=== PATIENT | female | born 1955 | race Caucasian/White ===

== ENCOUNTER 2019-07-26 12:44 | Outpatient (CLI) | payer OTHER, SELFPAY ==
--- NOTE | ~2019-07-26 | CT_ITS ---
EXAMINATION: CT shoulder LT wo con DATE: 07/26/2019 12:59 INDICATION: Left shoulder pain and chronic arthritis. TECHNIQUE: High resolution computed tomography (CT) of the left shoulder was performed without intrav enous contrast. Additional sagittal and coronal reconstructions were performed. Automated exposure co ntrol and iterative reconstruction technique were employed. The dose-length product was 354.74 mGy-cm . COMPARISON: None FINDINGS: Bone alignment is normal. No fracture. Advanced osteoarthritis at the left shoulder with remodeling o f the humeral head and glenoid. This results in loss of bone stock along the posterior glenoid with 1 8 degrees retroversion. Moderate size marginal osteophytes about the glenoid and large marginal osteo phytes along the posterior and inferior humeral head. Small glenohumeral joint effusion with a couple moderate-sized loose osteochondral bodies at the deep subscapular recess. Mild acromioclavicular ost eoarthritis. No evident asymmetric muscular atrophy at the left shoulder girdle. Mild atelectasis emilia ng the left major fissure. Calcified left hilar lymph nodes consistent with old granulomatous disease . No pathologically enlarged lymphadenopathy at the left axillary visualized mediastinum. IMPRESSION: 1. Advanced left glenohumeral osteoarthritis with remodeling of the glenoid resulting in 15 degrees r etroversion. Reviewed, dictated and finalized at location A. IMPRESSION: 1. Advanced left glenohumeral osteoarthritis with remodeling of the glenoid res ulting in 15 degrees retroversion.
== END 2019-07-26 12:45 | disposition home or self-care (01) ==
LOC: CHSIMG 12:45
PROVIDERS: PCP Internal Medicine; Visit Provider Internal Medicine
DX: M25.512 Pain in left shoulder (principal)
CPT/HCPCS: 73200

== ENCOUNTER 2019-10-25 15:00 | Outpatient (CLI) | payer OTHER, SELFPAY ==
--- NOTE | ~2019-10-25 | XR_ITS ---
EXAMINATION: XR chest 2V 10/25/2019 15:16 INDICATION: Hypertension. PROCEDURE: 2 view chest COMPARISON: 12/31/2018 FINDINGS: The lungs are clear. The cardiomediastinal silhouette is within normal limits. There are no pleural effusions. There is no pneumothorax suspected. There is a right shoulder arthroplasty. N o significant change to position of spinal stimulator leads. IMPRESSION: 1: NO ACUTE CARDIOPULMONARY DISEASE. Reviewed, dictated and finalized at location A.
== END 2019-10-25 15:01 | disposition home or self-care (01) ==
LOC: CHSLAB 15:02 → CHSIMG 15:02
PROVIDERS: PCP Internal Medicine; Visit Provider Internal Medicine
DX: I10 Essential (primary) hypertension (principal)
CPT/HCPCS: 71046

== ENCOUNTER 2019-11-22 08:46 | Outpatient (RCR) | payer OTHER, SELFPAY ==
--- NOTE | 2019-11-22 09:22 | PTOPEVAL ---
Thank you for referring Heidi Dalton to [facility]. Please review, sign, date and return this plan of care BLAINE. I agree with and certify that the following plan of care is medically necessary. Referring Physician Date Admitting Provider: Attending Provider: PHYSICIAN NOT ON STAFF Referring Provider: *PT Outpatient Evaluation Start: 11/22/19 09:00 Freq: Status: Active Protocol: Document 11/22/19 09:00 CARIDAD (Rec: 11/22/19 09:19 CARIDAD [id number]) Therapy Assessment Status Assessment Status Assessment Status Evaluation Outpatient Past Medical History Neurological History Hx Neurological Disorders No Significant History Cardiovascular History Hx Hypertension Yes Respiratory History Hx Respiratory Disorders No Significant History Gastrointestinal History Hx Appendectomy Yes Hx Diverticulitis Yes Hx Gall Bladder Disease Yes Hx Gastric Bypass Surgery Yes: GASTRIC SLEEVE Hx Polyps Yes Hx Other Gastrointestinal Disorders Yes: WT LOSS 50 LBS 1 YR Genitourinary History Hx Genitourinary Disorders No Significant History Musculoskeletal History Hx Arthritis Yes Hx Back Pain Yes: RODS AND SCREWS Hx Joint Replacement Yes: RT SHOULDER, RT KNEE Hx Orthopedic Surgery Yes: RT KNEE, RT CARPAL TUNNEL Hx Spinal Surgery Yes: RODS AND SCREWS Hx Other Musculoskeletal Disorders Yes: BACK STIMULATOR Hematological History Hx Hematological Disorders No Significant History Endocrine History Hx Endocrine Disorders No Significant History HEENT History Hx Tonsillectomy Yes Integumentary History Hx Shingles Yes Reproductive History Hx Reproductive Disorders No Significant History Psychosocial History Hx Psychiatric Disorders No Significant History Pain History Has Past Pain Affected Your Daily Life Yes History of Long-Term Prescription Pain Yes: [id number] Medication Use (Opiates) Effective Methods of Pain Control STIMULATOR Anesthesia History Hx Anesthesia Reactions No Significant History Other History Hx Implanted Device Yes: RT KNEE, RT SHOULDER, JOHANA & SCREWS BACK, STIMULATOR BACK Evaluation Information Problem Diagnosis s/p reverse total shoulder arthroplasty left Onset 11/02/19 Subjective Information Pt. reports she underwent RSTA Query Text:As Reported By Patient/ 3 weeks ago. She reports her Family pain has been minimal. She reports that she is currently restricted to nothing over 1
--- NOTE | 2020-01-17 07:25 | PTOPEVAL ---
Thank you for referring Heidi Dalton to [facility].? The patient is scheduled to be seen for therapy? ____x/week for ___ weeks. Please review, sign, date and return this plan of care BLAINE. I agree with and certify that the following plan of care is medically necessary. Referring Physician Date Admitting Provider: Attending Provider: PHYSICIAN NOT ON STAFF Referring Provider: *PT Outpatient Evaluation Start: 11/22/19 09:00 Freq: Status: Active Protocol: Document 01/06/20 11:00 CARIDAD (Rec: 01/17/20 07:24 CARIDAD [id number]) Therapy Assessment Status Assessment Status Assessment Status Progress Outpatient Past Medical History Neurological History Hx Neurological Disorders No Significant History Cardiovascular History Hx Hypertension Yes Respiratory History Hx Respiratory Disorders No Significant History Gastrointestinal History Hx Appendectomy Yes Hx Diverticulitis Yes Hx Gall Bladder Disease Yes Hx Gastric Bypass Surgery Yes: GASTRIC SLEEVE Hx Polyps Yes Hx Other Gastrointestinal Disorders Yes: WT LOSS 50 LBS 1 YR Genitourinary History Hx Genitourinary Disorders No Significant History Musculoskeletal History Hx Arthritis Yes Hx Back Pain Yes: RODS AND SCREWS Hx Joint Replacement Yes: RT SHOULDER, RT KNEE Hx Orthopedic Surgery Yes: RT KNEE, RT CARPAL TUNNEL Hx Spinal Surgery Yes: RODS AND SCREWS Hx Other Musculoskeletal Disorders Yes: BACK STIMULATOR Hematological History Hx Hematological Disorders No Significant History Endocrine History Hx Endocrine Disorders No Significant History HEENT History Hx Tonsillectomy Yes Integumentary History Hx Shingles Yes Reproductive History Hx Reproductive Disorders No Significant History Psychosocial History Hx Psychiatric Disorders No Significant History Pain History Has Past Pain Affected Your Daily Life Yes History of Long-Term Prescription Pain Yes: [id number] Medication Use (Opiates) Effective Methods of Pain Control STIMULATOR Anesthesia History Hx Anesthesia Reactions No Significant History Other History Hx Implanted Device Yes: RT KNEE, RT SHOULDER, JOHANA & SCREWS BACK, STIMULATOR BACK Evaluation Information Problem Subjective Information Pt. reports having no pain. Query Text:As Reported By Patient/ She states that she still Family notes weakness in the left shoulder, but has not been doing any strenuous lifting. She reports that she returns to her doctor in a few weeks.
== END 2020-02-11 13:15 | disposition home or self-care (01) ==
LOC: CHSPT 08:46
PROVIDERS: PCP Internal Medicine
DX: Z96.612 Presence of left artificial shoulder joint (principal)
CPT/HCPCS: 97110; 97161

== ENCOUNTER 2020-04-11 09:10 | Outpatient (CLI) | payer OTHER, SELFPAY ==
--- NOTE | ~2020-04-11 | XR_ITS ---
XR_[id number]_CR 04/11/2020 09:41 Indication: Neck pain Procedure: 3 views of the cervical spine Comparison: No prior studies for comparison. Findings: There are mild degenerative changes at C5-6 and C6-7. There is mild multilevel uncinate hyp ertrophy. Odontoid process within normal limits. Lung apices are normal. No prevertebral soft tissue abnormality. No fracture or traumatic malalignment. Impression: 1: Mild cervical spondylosis. Reviewed, dictated and finalized at location A. 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
--- NOTE | ~2020-04-11 | XR_ITS ---
EXAMINATION: XR thoracic spine 3V DATE: 04/11/2020 09:42 INDICATION: Dorsalgia with bilateral arm numbness and right leg weakness. TECHNIQUE: One AP, lateral and lateral swimmer's views of the thoracic spine were obtained. COMPARISON: Chest CT dated 12/15/2018 FINDINGS: Alignment is normal. Chronic T3 compression fracture with mild anterior vertebral body height loss wh ich is partially obscured on the lateral projection by a partially visualized right total shoulder ar throplasty. Also partially seen is a left reversed total shoulder arthroplasty. Remaining vertebral b haley heights are normal. There is multilevel mild disc height loss with degenerative endplate osteophy pawel at multiple levels throughout the thoracic spine. There are a pair of spinal stimulator leads pro ject over the central canal with proximal tips at the levels of the superior and inferior endplates o f T7. Cholecystectomy clips in right upper quadrant. Suture lines in the epigastric region. Partially visualized cephalad tips of bilateral vertebral rods for nonvisualized lumbar posterior spinal fusio n. Visual is portions of the lungs are clear. No pleural effusion. IMPRESSION: 1. Chronic mild T3 compression fracture. No evident acute osseous abnormality. 2. Mild thoracic spondylosis. Reviewed, dictated and finalized at location B. ENFORCEMENT AGENT
--- NOTE | ~2020-04-11 | XR_ITS ---
EXAMINATION: XR lumbar spine 2-3V DATE: 04/11/2020 09:42 INDICATION: Dorsalgia. TECHNIQUE: 3 views of lumbar spine were obtained. COMPARISON: Lumbar spine radiographs 04/08/2017, CT abdomen and pelvis 02/26/2019 FINDINGS: There is 7 mm retrolisthesis of L2 on L3. Vertebral body heights are normal. There is sever doroteo decreased disc height at L2-L3. There are changes of anterior fusion procedures from L3-L4 to L5- S1 with interbody device at L3-L4. There are changes of posterior fusion procedure from L3 to S1 with pedicle screws. There are surgical clips in the abdomen. There is a staple line in left upper quadra nt. There are epidural electrodes in thoracic spine. IMPRESSION: 1. Severe degenerative disc disease at L2-L3. 2. Anterior and posterior fusion procedures from L3 to S1. Reviewed, dictated and finalized at location A. TICS LOADER
== END 2020-04-11 09:11 | disposition home or self-care (01) ==
LOC: CHSIMG 09:12
PROVIDERS: PCP Internal Medicine; Visit Provider Internal Medicine
DX: M54.9 Dorsalgia, unspecified (principal); M54.2 Cervicalgia
CPT/HCPCS: 72040; 72072; 72100

== ENCOUNTER 2020-04-12 09:30 | Outpatient (CLI) | payer OTHER, SELFPAY | END 2020-04-12 09:31 | disposition home or self-care (01) | PROVIDERS: PCP Internal Medicine; Visit Provider Internal Medicine | DX: Z53.8 Procedure and treatment not carried out for other reasons (principal) | CPT/HCPCS: 99199 ==

== ENCOUNTER 2020-04-15 07:22 | Outpatient (CLI) | payer OTHER, SELFPAY ==
--- NOTE | ~2020-04-15 | MR_ITS ---
EXAMINATION: MR lumbar spine wo con EXAM DATE: 04/15/2020 09:14 INDICATION: Low back pain. Fusion. TECHNIQUE: Multi-sequential, multiplanar MR images of the lumbar spine were obtained without contrast . Sagittal T1, T2, T2 fat saturation images. Axial T2 weighted images. Correlation is made to lumba r x-ray 04/11/2020. FINDINGS: Posterior fusion L3-S1 with laminectomies. There is moderate disc disease at L2-3 interbody device at L3-4. Solid bone bridging at L4-5 and L5-S1. There is 3 mm retrolisthesis L2 on L3. Diffus doroteo heterogeneous bone marrow signal without suspicious focal abnormality. Level by level evaluation: Axial T2-weighted images in particular significantly limited due to the m etallic artifact, also scanning parameters required for patient's neurostimulator. Assessment below i s based mainly on sagittal T2-weighted sequence. T12-L1: Disc does not extend beyond the endplate margin. Facet arthropathy: None. Neural foraminal stenosis: No stenosis. Central canal stenosis: No stenosis. L1-L2: There is a minimal diffuse disc bulge. Facet arthropathy: Mild. Neural foraminal stenosis: No stenosis. Central canal stenosis: Mild. L2-L3: There is a moderate diffuse disc bulge. Facet arthropathy: Probably moderate. Neural foraminal stenosis: Moderate to severe bilateral. Central canal stenosis: Moderate to severe. L3-L4: This level is fused. Facet arthropathy: Poorly visualized. Neural foraminal stenosis: No stenosis. Central canal stenosis: No stenosis. L4-L5: This level is fused. Facet arthropathy: Poorly visualized. Neural foraminal stenosis: No stenosis. Central canal stenosis: No stenosis. L5-S1: This level is fused. Facet arthropathy: Poorly visualized. Neural foraminal stenosis: No stenosis. Central canal stenosis: No stenosis. IMPRESSION: 1. L2-3 moderate disc disease, grade 1 retrolisthesis, moderate to severe central canal and neural f oraminal stenosis. 2. Lumbar fusion, laminectomies L3-S1. Reviewed, dictated and finalized at location A. H REPAIR TECHNICIAN IMPRESSION: 1. L2-3 moderate disc disease, grade 1 retrolisthesis, moderate to severe cent ral canal and neural foraminal stenosis. 2. Lumbar fusion, laminectomies L3-S1.
== END 2020-04-15 07:23 | disposition home or self-care (01) ==
LOC: CHSIMG 07:23
PROVIDERS: PCP Internal Medicine; Visit Provider Internal Medicine
DX: M54.5 Low back pain (principal)
CPT/HCPCS: 72148

== ENCOUNTER 2020-06-28 07:27 | Outpatient (CLI) | payer OTHER, SELFPAY ==
--- NOTE | ~2020-06-28 | US_ITS ---
EXAMINATION: US abdomen complete EXAM DATE: 06/28/2020 08:20 INDICATION: Abdominal pain. TECHNIQUE: Multiple grayscale and Doppler images of the complete abdomen were obtained (by a technolo gist who performed the scan) and subsequently reviewed. Correlation is made to kidney ultrasound 2018, CT scan abdomen pelvis 02/26/2019. FINDINGS: The abdominal aorta is normal in caliber. Visualized portion IVC is patent. The pancreatic head a nd body are normal in appearance. The pancreatic tail is not visualized. The liver has normal echogenicity and contour. There are no focal liver lesions identified. There is no evidence of intrahepatic biliary duct dilation. Portal venous flow was seen in the hepatopedal , normal direction and has normal Doppler waveform. Common bile duct measures 4 mm, which is normal. The gallbladder fossa is unremarkable. Right kidney: There is normal contour and echogenicity. It measures 10.0 x 3.8 x 6.0 centimeters. There are no focal renal lesions identified. There is no hydronephrosis. Left kidney: There is normal contour and echogenicity. It measures 9.5 x 4.4 x 4.4 centimeters. Th ere are no focal renal lesions identified. There is no hydronephrosis. The spleen measures 8.3 centimeters and is morphologically normal. IMPRESSION: 1. Unremarkable complete abdominal ultrasound exam. Reviewed, dictated and finalized at location A. OS ARCHITECT
== END 2020-06-28 07:28 | disposition home or self-care (01) ==
LOC: CHSIMG 07:28
PROVIDERS: PCP Nurse Practitioner Family; Visit Provider Nurse Practitioner Family
DX: R10.9 Unspecified abdominal pain (principal)
CPT/HCPCS: 76700

== ENCOUNTER 2020-07-06 09:43 | Outpatient (CLI) | payer OTHER, SELFPAY ==
--- NOTE | ~2020-07-06 | CT_ITS ---
EXAMINATION: CT lumbar spine wo con DATE: 07/06/2020 10:33 INDICATION: Chronic low back pain. Spinal stenosis. TECHNIQUE: Computed tomography (CT) of the lumbar spine was performed without intravenous contrast. A utomated exposure control and iterative reconstruction technique were employed. The dose-length produ ct was 795.43 mGy-cm. COMPARISON: Lumbar spine MRI 04/15/2020 FINDINGS: There are surgical changes of the stomach. Partially visualized are epidural electrodes. Bob ne alignment is normal. There are changes of anterior and posterior fusion procedures from L3 to S1 w ith pedicle screws and interbody bone graft. There is mild chronic height loss of T11 and T12 vertebr al bodies. There is severely decreased disc height at L2-L3. There are laminectomies from L3 to L5. T he following disc levels are specifically discussed: L1-L2: The disc does not extend beyond the endplate margin. There is moderate bilateral facet joint o steoarthritis. There is no neural foraminal stenosis. There is no central canal stenosis. L2-L3: The disc is bulging. There is mild right and moderate left facet joint osteoarthritis. There i s moderate bilateral neural foraminal stenosis. There is mild central canal stenosis. L3-L4: There is no facet joint hypertrophy. There is no neural foraminal stenosis. There is no centra l canal stenosis. L4-L5: There is no facet joint hypertrophy. There is no neural foraminal stenosis. There is no centra l canal stenosis. L5-S1: There is mild bilateral facet joint hypertrophy. There is mild bilateral neural foraminal sten osis. There is no central canal stenosis. IMPRESSION: 1. Severe spondylosis at L2-L3. 2. Anterior and posterior fusion procedures from L3 to S1. Reviewed, dictated and finalized at location A. ARCHITECTURE CONSULTANT
--- NOTE | ~2020-07-06 | DEXA_ITS ---
Bone Density Report Name: Heidi Dalton Age: 64 Sex: Female Ethnicity: White Date of : 1955 Indication: postmenopausal; screening for osteoporosis; prior fracture; Referring Provider: Roly, Casey Marinelli Study: Bone densitometry was performed. Exam Date: July 06, 2020 Accession number: [id number] Bone Density: Region BMD T-score Z-score Classification Femoral Neck (Left) 0.671 -1.6 -0.1 Osteopenia Total Hip (Left) 0.697 -2.0 -0.8 Osteopenia Femoral Neck (Right) 0.659 -1.7 -0.2 Osteopenia Total Hip (Right) 0.705 -1.9 -0.7 Osteopenia Femoral Neck Mean 0.665 -1.7 -0.2 Osteopenia Total Hip Mean 0.701 -2.0 -0.8 Osteopenia World Health Organization criteria for BMD impression classify patients as: Normal (T-score at or above -1.0), Osteopenia (T-score between -1.0 and -2.5), or Osteoporosis (T-score at or below -2.5). 10-year Fracture Risk: FRAX not reported because: Prior hip or vertebral fracture Clinical Information Provided by Patient: Have had a previous hip or vertebral fracture Has had a low trauma fracture Patient maximum height was 63 Menopause Age: 52 No regular weight bearing exercise Drinks caffeinated beverages Onset of menses at age 14 Number of children 2 Missed period for more than 6 months in a row Impression: The patient has low bone mass, based on the Left Total Hip T-score. The patient has risk factors, including: previous fracture. Discussion: INCREASED RISK OF FRACTURE DUE TO HISTORY OF FRACTURE. The patient's previous fracture puts the patient at high risk of a future fracture. In untreated patients, the risk of osteoporotic fracture increases approximately two-fold for each 1.0 SD decrease in T-score. Low bone density is not the only risk factor for fracture; also consider factors such as patient's age, frailty or poor health, risk of falling, risk of injury, previous osteoporotic fracture, family history of osteoporosis, cigarette smoking, low body weight, etc. Not everyone with a low trauma fracture has osteoporosis; osteomalacia and other metabolic bone disorders should also be considered. Patients who have osteoporosis should be evaluated for specific diseases and conditions (secondary causes) that may cause or contribute to bone loss and fracture risk. National Osteoporosis Foundation (NOF) recommends pharmacologic intervention for patients with a prior hip or vertebral fracture regardless of BMD T-score. The patient should follow a healthful lifestyle (good nutrition with adequate calcium and vitamin D, and appropriate weight-bearing exercise). Follow-Up: Consider a repeat BMD and Vertebral Fracture Assessment (VFA) exam in 2 years or sooner if medically necessary, to reassess this patient's status. Reported by: Dr. Hema Hagen on 07/06/2020 10:26:00 AM.
== END 2020-07-06 09:44 | disposition home or self-care (01) ==
LOC: CHSIMG 09:47
PROVIDERS: PCP Nurse Practitioner Family; Visit Provider Neurological Surgery
DX: M48.061 Spinal stenosis, lumbar region without neurogenic claudication (principal); Z78.0 Asymptomatic menopausal state
CPT/HCPCS: 72131; 77080

== ENCOUNTER 2020-09-19 10:41 | Outpatient (CLI) | payer OTHER, SELFPAY ==
--- NOTE | ~2020-09-19 | MM_ITS ---
EXAMINATION: MM screening kain BI w jackie HISTORY: Screening mammogram TECHNIQUE: Craniocaudal and mediolateral oblique 3-D tomosynthesis images were obtained and synthetic 2-D images were generated. CAD analysis was submitted and interpreted. COMPARISON: No prior mammogram is available for comparison at this institution. BREAST PARENCHYMAL COMPOSITION: The breasts are almost entirely fatty. FINDINGS: There is no evidence of suspicious mass, calcification, or architectural distortion to sugg est malignancy in either breast. There has been no suspicious interval change. IMPRESSION: 1. No mammographic evidence of malignancy. 2. Recommend routine screening mammography in one year. BI-RADS Category 1: Negative Reviewed, dictated and finalized at location A.
== END 2020-09-19 10:42 | disposition home or self-care (01) ==
PROVIDERS: PCP Internal Medicine; Visit Provider Nurse Practitioner Family
DX: Z12.31 Encounter for screening mammogram for malignant neoplasm of breast (principal)
CPT/HCPCS: 77063; 77067

== ENCOUNTER 2021-01-24 10:00 | Outpatient (RCR) | payer MEDICARE, OTHER, SELFPAY | END 2021-01-24 23:59 | disposition home or self-care (01) | LOC: CHSSENLIFE 10:00 | PROVIDERS: PCP Internal Medicine; Visit Provider Psychiatry & Neurology Psychiatry | DX: F41.9 Anxiety disorder, unspecified (principal); F33.2 Major depressive disorder, recurrent severe without psychotic features | CPT/HCPCS: 90792; 90834; 90837; 90853; 99213; G0463 ==

== ENCOUNTER 2021-03-15 11:30 | Outpatient (RCR) | payer MEDICARE, OTHER, SELFPAY | END 2021-04-12 14:40 | disposition home or self-care (01) | LOC: CHSSENLIFE 11:30 | PROVIDERS: PCP Internal Medicine; Visit Provider Psychiatry & Neurology Psychiatry | DX: F41.9 Anxiety disorder, unspecified (principal); F33.2 Major depressive disorder, recurrent severe without psychotic features | CPT/HCPCS: 90837; 90853; 99213; G0463 ==

== ENCOUNTER 2021-10-11 01:21 | Day surgery (SDC) | payer MEDICARE, OTHER, SELFPAY ==
[2021-10-01 12:14] VITALS: BMI 30.4
--- NOTE | 2021-10-10 15:45 | WPDANESEPPF ---
Anes - Initial Pre Proc Eval Procedure: Operation Date: 10/11/21 07:30 Proposed Procedures p Esophagogastroduodenoscopy & Colonoscopy - Williams Miranda DO Date/Time: 10/10/21 15:45 Surgeon: Williams Miranda DO Pre Op Diagnosis: AMISH Patient Data Age: 65 Gender: F Height: 1.6 m Weight: 78 kg Allergies Allergy/AdvReac Type Severity Reaction Status Date / Time No Known Allergies Allergy Verified 10/11/21 06:18 Home Medications Medication Instructions Recorded Confirmed Type melatonin 10 mg tablet 10 mg PO HS PRN Sleep 03/04/19 10/11/21 History tizanidine 4 mg tablet 8 mg PO HS 03/04/19 10/11/21 History trazodone 150 mg tablet 200 mg PO HS 03/04/19 10/11/21 History zolpidem 10 mg tablet 10 mg PO HS PRN Sleep 03/04/19 10/11/21 History Patient hx anesthesia problems: none Family hx anesthesia problems: none Results Review: All pre-operative results and documents have been reviewed as part of the pre-operative evaluation. [facility] Past Medical History Medical History (Updated 10/10/21 @ 15:46 by Abdiaziz Singh DO) Anxiety Arthritis Chronic back pain Hyperlipidemia Hypertension Surgical History Surgical History (Updated 10/10/21 @ 15:46 by Abdiaziz Singh DO) History of gastric restrictive surgery (~08/2013) Family History Family History (Updated 03/01/16 @ 15:35 by DOCTOR UNKNOWN) Other Diabetes mellitus Family history of arthritis Family history of cardiovascular disease Family history of gout Hypertension Social History Social History Smoking status: Former smoker Tobacco type: cigarettes Alcohol intake: current Substance use: current Substance use type: marijuana Other substance usage details: Daily Living arrangements: with family Spiritual care concerns: No Anes - Eval Final PreProcedure Day of Procedure 10/10/21 15:45 Patient weight: obese Heart: regular rate and rhythm Lungs: clear to auscultation Airway: Mallampati scale class II Neurological: alert and oriented Last oral intake: >/= 8 hours ASA classification: III Emergent: no Anesthetic plan: proceed Anesthesia type and monitoring: general GIVS and standard monitoring Results Review: All pre-operative results and documents have been reviewed as part of the pre-operative evaluation. Informed Consent: The patient's anesthetic plan and its attendant risks and benefits were discussed with the patient/family/POA. Questions were solicited and answers provided to the satisfaction of the patient/family/POA.
[2021-10-11 06:10] VITALS: BP 124/85; PULSE 113; RESP 18; TEMP 36.4; O2SAT 97; BMI 30.3
[2021-10-11] MEDS: LACTATED RINGERS 1,000 ML 150 ML IV CONT (06:38)
--- NOTE | 2021-10-11 07:35 | PM.IMHP ---
H&P: HPI History of Present Illness Date/Time: 10/11/21 07:35 Chief Complaint: Anemia Narrative: this is a 65-year-old woman who presents for EGD and colonoscopy. She has been experiencing anemia but has an unknown source. She denies any hematochezia or melena. She does have a history of sleeve gastrectomy for weight loss. She last had a colonoscopy about 2-3 years ago and this was normal. Denies family history of colon cancer. Review of Systems Review of Systems: All systems reviewed & are unremarkable except as noted in HPI and below Constitutional: Constitutional: Denies chills, Denies fever(s), Denies headache(s) and Denies weight loss Eyes: Eyes: Denies change in vision ENT: Denies dizziness, Denies headache(s), Denies neck mass and Denies throat swelling Cardiovascular: Cardiovascular: Denies chest pain, Denies lightheadedness and Denies dyspnea Respiratory: Respiratory: Denies cough, Denies dyspnea and Denies wheezing Gastrointestinal: Gastrointestinal: Denies abdominal pain, Denies change in bowel habits, Denies nausea and Denies vomiting Genitourinary: Genitourinary: Denies hematuria and Denies dysuria Musculoskeletal: Musculoskeletal: Reports as per HPI Integumentary/Breasts: Skin/Breast: Reports as per HPI Neurologic: Denies dizziness and Denies headache(s) Allergic/Immunologic: Allergic/Immunologic: Denies throat swelling and Denies wheezing [facility] Past Medical History Medical History (Updated 10/11/21 @ 07:37 by Williams Miranda DO) Anxiety Arthritis Chronic back pain Hyperlipidemia Hypertension Surgical History Surgical History (Updated 10/10/21 @ 15:46 by Abdiaziz Singh DO) History of gastric restrictive surgery (~08/2013) Family History Family History (Updated 03/01/16 @ 15:35 by DOCTOR UNKNOWN) Other Diabetes mellitus Family history of arthritis Family history of cardiovascular disease Family history of gout Hypertension Social History Social History Smoking status: Former smoker Tobacco type: cigarettes Alcohol intake: current Substance use: current Substance use type: marijuana Other substance usage details: Daily Living arrangements: with family Spiritual care concerns: No Meds Home Medications and Allergies Home Medications Medication Instructions Recorded Confirmed Type melatonin 10 mg tablet 10 mg PO HS PRN Sleep 03/04/19 10/11/21 History tizanidine 4 mg tablet 8 mg PO HS 03/04/19 10/11/21 History trazodone 150 mg tablet 200 mg PO HS 03/04/19 10/11/21 History zolpidem 10 mg tablet 10 mg PO HS PRN Sleep 03/04/19 10/11/21 History Allergies Allergy/AdvReac Type Severity Reaction Status Date / Time No Known Allergies Allergy Verified 10/11/21 06:18 Vital Signs Vital Signs - 24 hr 10/11/21 06:10 Temperature 36.4 C Pulse Rate 113 H Respiratory Rate 18 Blood Pressure 124/85 Pulse Oximetry 97 Oxygen Delivery Room Air Exam Const: General: no acute distress and alert Orientation/consciousness: patient oriented x3 HENMT: Head: normocephalic and atraumatic Ears: hearing grossly normal bilaterally General nose exam: Normal nares present Mouth: Yes Normal oral and palatal mucosa present Eyes: Periorbital: periorbital findings normal Sclera: sclerae normal EOM: EOMs intact bilaterally Neck: Neck: normal visual inspection, no lymphadenopathy and trachea midline Chest: Chest palpation & inspection: normal inspection of the chest Resp: Effort & Inspection: normal respiratory effort Auscultation: clear to auscultation bilaterally Cardio: Jugular venous distension: no JVD Rate: regular rate Rhythm: regular rhythm Heart sounds: S1 normal heart sound present and S2 normal heart sound present Peripheral pulses: Peripheral pulses 2+ throughout GI: Inspection: normal to inspection GI Palp: Yes Soft to palpation, No Tenderness to palpation present (GI), No Guarding due to palpation present (GI) and
[2021-10-11 08:20] VITALS: BP 94/57; PULSE 66; RESP 15; O2SAT 100
--- NOTE | 2021-10-11 08:20 | SUR.OPER ---
EGD START 742, END 48 COLONOSCOPY START 075, END 08
[2021-10-11 08:30] VITALS: BP 104/69; PULSE 74; RESP 15; O2SAT 100
[2021-10-11 08:40] VITALS: BP 110/68; PULSE 71; RESP 18; O2SAT 100
== END 2021-10-11 08:51 | disposition home or self-care (01) ==
PROVIDERS: PCP Internal Medicine; Visit Provider Surgery
PROC: 0DJ08ZZ Inspection of Upper Intestinal Tract, Via Natural or Artificial Opening Endoscopic (ICD-10-PCS; CPT 43235; principal; 2021-10-11 07:30)
DX: D50.9 Iron deficiency anemia, unspecified (principal); D12.3 Benign neoplasm of transverse colon; K57.30 Diverticulosis of large intestine without perforation or abscess without bleeding; I10 Essential (primary) hypertension; E78.5 Hyperlipidemia, unspecified; F41.9 Anxiety disorder, unspecified; Z98.84 Bariatric surgery status; Z87.891 Personal history of nicotine dependence; F12.90 Cannabis use, unspecified, uncomplicated; E66.9 Obesity, unspecified; Z68.30 Body mass index [BMI] 30.0-30.9, adult
CPT/HCPCS: 45385; 43239; 88305; J2704; J7120

== ENCOUNTER 2022-05-14 12:33 | Outpatient (CLI) | payer MEDICARE, OTHER, SELFPAY ==
--- NOTE | 2022-05-14 12:50 | ECG_ITS ---
Measurements Intervals [place] Rate: 69 P: 62 IN: 153 QRS: 56 QRSD: 88 T: 55 QT: 426 QTc: 458 Interpretive Statements SINUS RHYTHM VENTRICULAR PREMATURE COMPLEX LOW QRS VOLTAGE IN PRECORDIAL LEADS BORDERLINE ECG NO PREVIOUS ECG AVAILABLE FOR COMPARISON Electronically Signed On 05-14-2022 13:06:44 PROCEDURE TECH by Francisco Deal D.O.
== END 2022-05-14 12:34 | disposition home or self-care (01) ==
LOC: CHSCARD 12:36
PROVIDERS: PCP Internal Medicine; Visit Provider Internal Medicine
DX: R00.2 Palpitations (principal)
CPT/HCPCS: 93005

== ENCOUNTER 2022-05-20 14:05 | Outpatient (CLI) | payer MEDICARE, OTHER, SELFPAY ==
--- NOTE | 2022-06-20 11:25 | WPDHOLTEREM ---
Holter/Event Monitor Holter/Event Monitor Date of procedure: 05/20/22 Holter/Event Procedure: Event Monitor Indications: Palpitations Conclusion: 1. 26 days event monitor between 05/20/22-06/18/22. There are 86 available transmissions for analysis. 2. Predominant rhythm is sinus rhythm. HR range 45-191 bpm; average HR 70 bpm. 3. There are occasional premature supraventricular complexes with total burden of 1%. There is 1 episode of supraventricular tachycardia at 191 bpm lasting 11 beats on 06/16/22 at 11:41. 4. There are occasional premature ventricular complexes with total burden of 1%. There is 1 episode of ventricular tachycardia t 129 bpm lasting 5 beats on 06/03/22 at 15:33. 5. No significant pauses greater than 2 seconds. 6. Patient reports 67 episodes of symptoms of skipped beat, heart racing, shortness of breath, lightheadedness, dizziness, symptom other than listed which demonstrate sinus rhythm, HR range 69-142 bpm with 23 episodes with PaC's and 14 episodes with PVC's.
== END 2022-05-20 14:06 | disposition home or self-care (01) ==
LOC: CHSCARD 14:07
PROVIDERS: PCP Internal Medicine; Visit Provider Internal Medicine
DX: R00.2 Palpitations (principal)
CPT/HCPCS: 93270

== ENCOUNTER 2022-07-09 09:50 | Outpatient (CLI) | payer MEDICARE, OTHER, SELFPAY ==
--- NOTE | ~2022-07-09 | XR_ITS ---
Right Knee Technique: AP, lateral, and sunrise views were obtained. Clinical History: Pain COMPARISON: 11/22/2021 Findings: No fracture or dislocation is seen. Right knee arthroplasty is unchanged. Soft tissues are unremarkable. No joint effusion is seen. Impression: No acute abnormality. Right knee arthroplasty is unchanged. Reviewed, dictated and finalized at location . Impression: No acute abnormality. Right knee arthroplasty is unchanged.
== END 2022-07-09 09:51 | disposition home or self-care (01) ==
LOC: CHSIMG 09:53
PROVIDERS: PCP Internal Medicine; Visit Provider Orthopaedic Surgery
DX: M25.561 Pain in right knee (principal); Z96.651 Presence of right artificial knee joint
CPT/HCPCS: 73562

== ENCOUNTER 2022-07-15 11:42 | Outpatient (CLI) | payer MEDICARE, OTHER, SELFPAY ==
--- NOTE | 2022-07-15 01:00 | ECHO_ITS ---
Patient Info Name: Heidi Dalton Age: 66 years : 1955 Gender: Female Ht: 62 in Wt: 182 lbs BSA: 1.94 m2 HR: 66 bpm BP: 135 / 85 mmHg Heart Rhythm: Sinus Rhythm Technical Quality: Fair Exam Date: 07/15/2022 11:53 AM Exam Location: [facility] Patient Status: Outpatient Admit Date: 07/15/2022 Staff Ordering Physician: Pietro Kelly MD [employer]: Mora Rosario RDCS Attending Provider: Pietro Kelly MD Referring Physician: Robin LOYD; Exam Type: CA echo doppler color flow Study Info Indications I47.2 - Ventricular tachycardia Complete two-dimensional, color flow and Doppler transthoracic echocardiogram is performed. Summary 1. Complete two-dimensional, color flow and Doppler transthoracic echocardiogram is performed. 2. Left ventricular chamber dimension is normal. 3. Left ventricular systolic function is normal, estimated at 60-65%. 4. The left ventricular diastolic function is grade I diastolic dysfunction. 5. E/e' 12 is mildly elevated. 6. There is mild aortic valve sclerosis. 7. There is mild aortic valve regurgitation. 8. There is trace mitral valve regurgitation. 9. There is trace tricuspid valve regurgitation. 10. No pulmonary hypertension, estimated pulmonary arterial systolic pressure is 29 mmHg. 11. There is trace pulmonic regurgitation. Left Ventricle E/e' 12 is mildly elevated. Left ventricular chamber dimension is normal. Left ventricular systolic function is normal, estimated at 60-65%. The left ventricular diastolic function is grade I diastolic dysfunction. Right Ventricle Right ventricular systolic function is normal and with normal TAPSE 1.9 cm. Right ventricular chamber dimension is normal. Left Atria Left atrial chamber dimension is normal. Right Atria Right atrial chamber dimension is normal. Aortic Valve The aortic valve is trileaflet. There is mild aortic valve sclerosis. There is no aortic valve stenosis. There is mild aortic valve regurgitation. Pulmonic Valve There is trace pulmonic regurgitation. Mitral Valve There is no mitral valve stenosis. There is trace mitral valve regurgitation. Tricuspid Valve There is trace tricuspid valve regurgitation. No pulmonary hypertension, estimated pulmonary arterial systolic pressure is 29 mmHg. Pericardium/Pleural There is no pericardial effusion. Inferior Vena Cava Normal inferior vena cava with >50% collapse upon inspiration consistent with normal right atrial pressure, 5 mmHg. Aorta The aortic root size at the sinus of Valsalva is normal. Left Ventricular Outflow Tract Name Value Normal LVOT 2D LVOT Diameter 2.0 cm LVOT Doppler LVOT Peak Velocity 87 cm/s LVOT Peak Gradient 3 mmHg LVOT Mean Gradient 2 mmHg LVOT VTI 18 cm LVOT VTI/AV VTI Ratio 0.6 LVOT Stroke Volume 53 ml Pulmonic Valve Name V
== END 2022-07-15 11:43 | disposition home or self-care (01) ==
LOC: CHSIMG 11:43
PROVIDERS: PCP Internal Medicine; Visit Provider Internal Medicine
DX: I47.29 Other ventricular tachycardia (principal); I35.8 Other nonrheumatic aortic valve disorders
CPT/HCPCS: 93306

== ENCOUNTER 2022-08-05 10:00 | Outpatient (RCR) | payer MEDICARE, OTHER, SELFPAY | END 2022-08-21 23:59 | disposition home or self-care (01) | LOC: CHSSENLIFE 10:00 | PROVIDERS: PCP Internal Medicine; Visit Provider Psychiatry & Neurology Psychiatry | DX: F33.0 Major depressive disorder, recurrent, mild (principal) | CPT/HCPCS: 90792; 90853; 99213; G0463 ==

== ENCOUNTER 2022-11-15 09:30 | Outpatient (RCR) | payer MEDICARE, OTHER, SELFPAY | END 2022-11-21 13:56 | disposition home or self-care (01) | LOC: CHSSENLIFE 09:30 | PROVIDERS: PCP Internal Medicine; Visit Provider Psychiatry & Neurology Psychiatry | DX: F33.0 Major depressive disorder, recurrent, mild (principal) | CPT/HCPCS: 90837; 90853; 99213; G0463 ==

== ENCOUNTER 2023-08-12 12:41 | Outpatient (CLI) | payer MEDICARE, OTHER, SELFPAY ==
--- NOTE | ~2023-08-12 | DEXA_ITS ---
Bone Density Report Name: LUL CASTELLON Age: 67 Sex: Female Ethnicity: White Date of : 1955 Indication: postmenopausal; screening for osteoporosis; height loss; prior fracture; Referring Provider: Pietro Kelly Study: Bone densitometry was performed. Exam Date: August 12, 2023 Accession number: [id number] Bone Density: Region BMD T-score Z-score Classification AP Spine(L1-L4) 3.398 21.4 23.3 Normal Femoral Neck (Left) 0.580 -2.4 -0.8 Osteopenia Total Hip (Left) 0.698 -2.0 -0.6 Osteopenia Femoral Neck (Right) 0.556 -2.6 -1.0 Osteoporosis Total Hip (Right) 0.656 -2.3 -1.0 Osteopenia Femoral Neck Mean 0.568 -2.5 -0.9 Osteoporosis Total Hip Mean 0.677 -2.2 -0.8 Osteopenia World Health Organization criteria for BMD impression classify patients as: Normal (T-score at or above -1.0), Osteopenia (T-score between -1.0 and -2.5), or Osteoporosis (T-score at or below -2.5). 10-year Fracture Risk: FRAX not reported because: Some T-score for Spine Total or Hip Total or Femoral Neck at or below -2.5 Prior hip or vertebral fracture Clinical Information Provided by Patient: Have had a previous hip or vertebral fracture Has had a low trauma fracture Patient maximum height was 63 Menopause Age: 52 No regular weight bearing exercise Drinks caffeinated beverages Onset of menses at age 14 Number of children 2 Missed period for more than 6 months in a row Impression: The patient has established osteoporosis, based on the Right Femoral Neck T-score and the existence of a prior fracture. The patient has risk factors, including: previous fracture. Discussion: HIGH RISK OF FRACTURE. BONE DENSITY IS UNDESIRABLY LOW AT ONE OR MORE SKELETAL SITES, CONSISTENT WITH POSTMENOPAUSAL OSTEOPOROSIS. This patient's lowest T-score, in a patient who has previously fractured, meets the World Health Organization's (WHO) criteria for severe osteoporosis. In untreated patients, the risk of osteoporotic fracture increases approximately two-fold for each 1.0 SD decrease in T-score. Low bone density is not the only risk factor for fracture; also consider factors such as patient's age, frailty or poor health, risk of falling, risk of injury, previous osteoporotic fracture, family history of osteoporosis, cigarette smoking, low body weight, etc. Not everyone with low bone mineral density has osteoporosis; osteomalacia and other metabolic bone disorders should also be considered. Patients who have osteoporosis should be evaluated for specific diseases and conditions (secondary causes) that may cause or contribute to bone loss. The [employer]ocrin[employer] (AACE) and National Osteoporosis Foundation (NOF) recommend pharmacologic intervention for all postmenopausal women with a previous
--- NOTE | ~2023-08-12 | MM_ITS ---
EXAMINATION: MM screening kain BI w jackie HISTORY: Screening TECHNIQUE: Craniocaudal and mediolateral oblique 3-D tomosynthesis images were obtained and synthetic 2-D images were generated. CAD analysis was submitted and interpreted. COMPARISON: 09/19/2020 BREAST PARENCHYMAL COMPOSITION: There are scattered areas of fibroglandular density. FINDINGS: There is no evidence of suspicious mass, calcification, or architectural distortion to sugg est malignancy in either breast. There has been no suspicious interval change. IMPRESSION: 1. No mammographic evidence of malignancy. 2. Recommend routine screening mammography in one year. BI-RADS Category 1: Negative Reviewed, dictated and finalized at location B.
== END 2023-08-12 12:42 | disposition home or self-care (01) ==
LOC: CHSIMG 12:42
PROVIDERS: PCP Internal Medicine; Visit Provider Internal Medicine
DX: Z12.31 Encounter for screening mammogram for malignant neoplasm of breast (principal); Z78.0 Asymptomatic menopausal state; M85.89 Other specified disorders of bone density and structure, multiple sites; M81.0 Age-related osteoporosis without current pathological fracture
CPT/HCPCS: 77063; 77067; 77080

== ENCOUNTER 2023-08-19 08:35 | Outpatient (CLI) | payer MEDICARE, OTHER, SELFPAY ==
--- NOTE | ~2023-08-19 | XR_ITS ---
EXAMINATION: XR knee RT 3V DATE: 08/19/2023 08:53 INDICATION: Right knee pain. TECHNIQUE: 3 views of right knee were obtained. COMPARISON: None. FINDINGS: There is a total right knee arthroplasty without patellar resurfacing in near-anatomic alig nment. No periprosthetic lucency to suggest loosening or infection. No fracture. There is a small kne e joint effusion. IMPRESSION: 1. Total right knee arthroplasty in near-anatomic alignment. 2. Small knee joint effusion. Reviewed, dictated and finalized at location E.
== END 2023-08-19 08:36 | disposition home or self-care (01) ==
LOC: CHSIMG 08:37
PROVIDERS: PCP Internal Medicine; Visit Provider Orthopaedic Surgery
DX: M25.561 Pain in right knee (principal); Z96.651 Presence of right artificial knee joint; M25.461 Effusion, right knee
CPT/HCPCS: 73562

== ENCOUNTER 2023-09-04 09:25 | Outpatient (CLI) | payer MEDICARE, OTHER, SELFPAY ==
--- NOTE | 2023-09-04 09:40 | PC.NURSE ---
Patient here to receive Reclast infusion. Vital signs stable. Tolerated IV start well. Sitting up in recliner with call light at side.
[2023-09-04 09:45] VITALS: BP 113/84; PULSE 74; RESP 16; TEMP 35.6; O2SAT 98
[2023-09-04 09:56] VITALS: BMI 28.9
[2023-09-04] MEDS: ZOLEDRONIC ACID 5 MG/100 ML 100 ML 400 MG IVPB (10:00)
[2023-09-04 10:20] VITALS: BP 115/79; PULSE 63; RESP 16; O2SAT 98
--- NOTE | 2023-09-04 10:20 | PC.NURSE ---
Addendum entered by Disha Espana RN 09/04/23 10:41: Patient left floor at 1030 Original Note: Patient tolerated infusion well. No s/s of adverse reactions. Education given to patient about Reclast verbally and printed handout. IV site removed, tip intact and dressing applied. Patient left floor ambulatory. Denies any questions at time of discharge.
== END 2023-09-04 10:30 | disposition home or self-care (01) ==
PROVIDERS: PCP Internal Medicine; Visit Provider Internal Medicine
DX: M81.0 Age-related osteoporosis without current pathological fracture (principal)
CPT/HCPCS: 96374; J3489

== ENCOUNTER 2023-11-03 16:31 | Outpatient (CLI) | payer MEDICARE, OTHER, SELFPAY ==
--- NOTE | ~2023-11-03 | XR_ITS ---
EXAMINATION: XR wrist LT min 3V DATE: 11/03/2023 16:58 INDICATION: Left wrist pain. TECHNIQUE: 4 views of left wrist were obtained. COMPARISON: None. FINDINGS: Bone alignment is normal. No fracture. There is mild osteoarthritis of first carpometacarpa l joint. IMPRESSION: 1. Mild osteoarthritis of first carpometacarpal joint. Reviewed, dictated and finalized at location E.
== END 2023-11-03 16:32 | disposition home or self-care (01) ==
LOC: CHSIMG 16:35
PROVIDERS: PCP Internal Medicine; Visit Provider Internal Medicine
DX: S69.92XA Unspecified injury of left wrist, hand and finger(s), initial encounter (principal); M19.032 Primary osteoarthritis, left wrist
CPT/HCPCS: 73110

== ENCOUNTER 2024-01-08 11:18 | Outpatient (CLI) | payer MEDICARE, OTHER, SELFPAY ==
--- NOTE | ~2024-01-08 | CT_ITS ---
EXAMINATION: CT abdomen pelvis w con DATE: 01/08/2024 12:19 INDICATION: Acute lower abdominal pain. TECHNIQUE: Computed tomography (CT) of the abdomen and pelvis was performed with 100 mL Omnipaque 350 intravenous contrast. Automated exposure control and iterative reconstruction technique were employe d. The dose-length product was 412.90 mGy-cm. COMPARISON: CT abdomen and pelvis 02/26/2019 FINDINGS: The visualized portions of the lung bases demonstrate mild atelectasis. No pleural effusion . The heart size is normal. No pericardial effusion. There is a small sliding hiatal hernia. There ar e changes of gastric sleeve procedure. The liver is normal. There are changes of cholecystectomy. The spleen is normal. There is a 10 mm hypodense mass in the pancreas. The adrenal glands are normal. Th ere is cortical thinning of the kidneys. Stool distends the rectum. There is diverticulosis of the co tor without evidence of diverticulitis. There are changes of appendectomy. There are no pathologicall y enlarged lymph nodes. There is no free intraperitoneal fluid. Epidural electrodes are noted. There are changes of anterior and posterior fusion procedures from L2 to S1. There is mild thoracic and lum bar spondylosis. IMPRESSION: 1. Stool distends the rectum. 2. 10 mm hypodense mass in the pancreas, which may be benign or less likely malignant. Abdomen MRI wi thout and with contrast is recommended. Reviewed, dictated and finalized at location A. IMPRESSION: 1. Stool distends the rectum. 2. 10 mm hypodense mass in the pancreas, which may be benign or less likely mal ignant. Abdomen MRI without and with contrast is recommended.
[2024-01-08 11:42] LABS: Estimated Glomerular Filt Rate 47
== END 2024-01-08 11:19 | disposition home or self-care (01) ==
LOC: CHSIMG 11:21
PROVIDERS: PCP Internal Medicine; Visit Provider Internal Medicine
DX: R10.30 Lower abdominal pain, unspecified (principal); K86.9 Disease of pancreas, unspecified
CPT/HCPCS: 74177; Q9967

== ENCOUNTER 2024-01-15 06:37 | Outpatient (CLI) | payer MEDICARE, OTHER, SELFPAY | END 2024-01-15 06:38 | disposition home or self-care (01) | LOC: CHSIMG 06:39 | PROVIDERS: PCP Internal Medicine; Visit Provider Internal Medicine | DX: D37.8 Neoplasm of uncertain behavior of other specified digestive organs (principal) | CPT/HCPCS: 99199 ==

== ENCOUNTER 2024-10-04 08:51 | Outpatient (CLI) | payer MEDICARE, OTHER, SELFPAY ==
[2024-10-04 09:08] VITALS: BP 143/70; PULSE 78; RESP 14; TEMP 36.5; O2SAT 98; BMI 39.8
[2024-10-04] MEDS: ZOLEDRONIC ACID 5 MG/100 ML 100 ML 400 MG IVPB (09:20)
--- OUTSIDE RECORDS SUMMARY | 2024-10-04 09:28 | XMS_ITS | Clinical Summary ---
Author Organization [facility] Address [address] [place] [address] Care Team Providers Care Brake Holder Name Role Phone Pietro Kelly MD Primary Care Provider [phone] Allergies Active Allergy Reactions Criticality Noted Date Comments Pregabalin Edema Medium 08/12/2022 Medications tiZANidine (ZANAFLEX) 4 mg tablet Take 1 tablet (4 mg total) by mouth 3 (three) times a day as needed 01/02/20 18 Active zolpidem (AMBIEN) 10 mg tabletIndicati ons:Sleep-Onse t Insomnia Take 1 tablet (10 mg total) by mouth nightly 2 12/21/19 18 Active traZODone (DESYREL) 150 mg tablet Take 1 tablet (150 mg total) by mouth nightly Active lisinopriL (PRINIVIL,ZEST RIL) 20 mg tablet Take 1 tablet (20 mg total) by mouth daily 10/10/19 20 Active gabapentin (NEURONTIN) 300 mg capsule Take 300 mg by mouth 3 (three) times a day Takes one in am, one at noon and 3 capsules at night. Active HYDROcodone-ac etaminophen (NORCO) 5-325 mg per tabletIndicati ons:Pain Take 1-2 tablets by mouth every 4 (four) hours as needed for pain 43 tablet 11/03/19 20 Active Additional Information Patient not taking.Reported on 08/12/2022 senna-docusate (PERICOLACE) 8.6-50 mgIndications: constipation Take 1-2 tablets by mouth 2 (two) times a day as needed for constipation 60 tablet 1 11/03/19 Active Additional Information Patient not taking.Reported on 08/12/2022 cholecalcifero l (VITAMIN D-3) 2000 unit capsule Take 1 capsule (2,000 Units total) by mouth daily 30 capsule 11/03/19 20 Active Additional Information Patient not taking.Reported on 08/12/2022 celecoxib (CeleBREX) 200 mg capsuleIndicat ions:Postopera tive Acute Pain,Pain Take 1 capsule (200 mg total) by mouth 2 (two) times a day for 14 days 28 capsule 11/03/19 20 Active Additional Information Patient not taking.Reported on 08/12/2022 aspirin 81 mg enteric coated tablet Take 1 tablet (81 mg total) by mouth 2 (two) times a day for 14 days 28 tablet 11/04/19 Active Additional Information Patient not taking.Reported on 08/12/2022 lovastatin (MEVACOR) 20 mg tablet Take 1 tablet (20 mg total) by mouth daily with dinner 06/14/[address] (CYMBALTA) 60 mg capsule Take 1 capsule (60 mg total) by mouth daily Two tablets daily 06/16/19 23 Active melatonin 10 mg tablet Active omeprazole (PriLOSEC) 20 mg capsule TAKE 1 CAPSULE BY MOUTH TWICE A DAY 180 capsule 1 09/14/19 25 Active omeprazole (PriLOSEC) 20 mg capsule TAKE 1 CAPSULE BY MOUTH TWICE A DAY 180 capsule 1 03/17/20 24 025 Discontinued Active Problems Problem Noted Date Diagnosed Date Palpitations 08/12/2022 Essential hypertension 08/12/2022 Mixed hyperlipidemia 08/12/2022 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 01/20/2020 Failed back syndrome, lumbar 01/07/2018 Overview (01/07/2018): Added automatically from request for surgery [id number] Resolved Problems Problem Noted Date Diagnosed Date Resolved Date Rotator cuff arthropathy, left 10/27/2019 01/20/2020 Overview (10/27/2019): Added automatically from request for surgery [id number] Osteoarthritis of glenohumeral joint, left 10/27/2019 01/20/2020 Overview (10/27/2019): Added automatically from request for surgery [id number] Biceps tendonitis on left 10/27/2019 Overview (10/27/2019): Added automatically from request for surgery [id number] Encounters Date Type Department Care Team Description 09/01/2024 Orders Only [facility] Gastroenterology [address] [place] [address] Medical Office Building [address], [address] [place] [address] Oswaldo Hairston MD Pancreatic cyst (Primary Dx); 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 from Last 3 Months Surgical History Surgery Date Site/Laterality Comments KNEE ARTHROSCOPY Arthroscopy knee BACK SURGERY Back surgery SPINE SURGERY x 3; all failed JOINT REPLACEMENT RTRShoulder CHOLECYSTECTOMY CARPAL TUNNEL RELEASE Right TONSILLECTOMY SLEEVE GASTROPLASTY 04/28/2014 - 04/27/2015 UPPER GASTROINTESTINAL ENDOSCOPY COLONOSCOPY Medical History Medical History Date Comments Hx Other Medical shoulder repkla cement Hypertension Hyperlipidemia Arthritis back Bulging of cervical intervertebral disc C8 Osteoporosis Osteoarthritis Depression Hiatal hernia Peripheral neuropathy High blood sugar PONV (postoperative nausea and vomiting) Palpitations Impetigo Chronic kidney disease Family History Medical History Relation Name Comments Coronary artery disease Father Diabetes Father Heart disease Father Kidney failure Father Heart disease Mother Kidney failure Mother Thyroid disease Mother Arthritis Other Blood Clot Other Cancer Other Diabetes Other Family history of Diabetes mellitus; Heart disease Other Hypertension Other Kidney disease Other Lung disease Other Relation Name Status Comments Father Mother Alive Other Social History Tobacco Use Types Packs/Day Years Used Date Smoking Tobacco: Former Cigarettes Q uit: 2008 Smokeless Tobacco: Current Tobacco Cessation:Ready to Q uit: Not Asked; Counseling Given: Not Answered Alcohol Use Standard Drinks/Week Comments No 0 (1 standard drink = 0.6 oz pur e alcohol) AUDIT-C Answer Date Recorded Q1: How often do you have a drink containing alc ohol? Never 02/11/2024 Average Number of Drinks Not on file 024 Frequency of Binge Drinking Not on file 01/26 PHQ-2 Answer Date Recorded PHQ-2 Total Score (If total score is 3 or more points, staff should administer the PHQ-9) 0 11/02/2019 Personal Safety Answer Date Recorded Have you ever been in or are you currently in a harmful physical or emotional relationship or is someone making you feel afraid or unsafe? Denies 02/11/2024 Comments No Sex and Gender Information Value Date Recorded Sex Assigned at Not on file Legal Sex Female 1:08 AM MANAGER APPOINTMENT Gender Identity Female 02/07/2024 10:49 AM CDT Sexual Orientation Not on file Obstetrics History Last Filed Vital Signs Vital Sign Reading Time Taken Comments Blood Pressure 150/92 02/11/2024 1:14 PM CDT Pulse 70 02/11/2024 1:14 PM CDT Temperature 36 C (96.8 F) 02/11/2024 12:50 PM CDT Respiratory Rate 12 02/11/2024 1:14 PM CDT Oxygen Saturation 98% 02/11/2024 1:14 PM CDT Inhaled Oxygen Concentration - - Weight 75.8 kg (167 lb) 02/11/2024 11:36 AM CDT Height 154.9 cm (5' 1) 02/11/2024 11:36 AM CDT Body Mass Index 31.55 02/11/2024 11:36 AM CDT Plan of Treatment Health Maintenance Due Date Last Done Comments Breast Cancer Screening-Mammogram 1955 Colon Cancer Screening-Colonoscopy 1955 Hepatitis C Screening 1955 Osteoporosis Screening-Bone Density Scan 1955 Hepatitis B Screening 10/25/1973 Pneumococcal vaccine 65+ (2 of 2 - PPSV23) 02/01/2017 02/02/2016, 12/06/2014 Well Visit 65+ 10/25/2020 Depression Screening 2020 10/27/2019 DTaP/Tdap/Td Vaccine (2 - Td or Tdap) 01/28/2023 01/28/2013 Influenza Vaccine (Season Ended) 2024 02/22/2019, 12/26/2016, 02/02/2016, Additional history exists Fall Risk Assessment 02/10/2025 02/11/2024 Zoster Vaccine Completed 07/16/2018, 11/27, 02/02/2016 Medical Devices Implanted Type Area Nutritional Yeast Supervisor Device Identifier Shelf Expiration Date Model / Serial / Lot Exactech 320-20-26 Equinoxe 4.5mm 26mm Kit Compression Lock Cap Reverse Shoulder - [id number] - [id number] Implanted:Qty: 1 on 11/02/2019 by Rubén Chavez MD at [facility] Screw Left: Shoulder Exactech 02/24/2024 320-20-26 / [id number] / Exactech 320-20-26 Equinoxe 4.5mm 26mm Kit Compression Lock Cap Reverse Shoulder - [id number] - [id number] Implanted:Qty: 1 on 11/02/2019 by Rubén Chavez MD at [facility] Screw Left: Shoulder Exactech 12/01/2023 320-20-26 / [id number] / [employer] 1192 Rob-Lock [place] Lead - [id number] Implanted:Qty: 1 on 02/27/2018 by Deanne Neal MD at [facility] N/A: Spine Thoracic [employer] 12/03/2019 1192 / / [id number] [employer] 1192 Rob-Lock [place] Lead - [id number] Implanted:Qty: 1 on 02/27/2018 by Deanne Neal MD at [facility] N/A: Spine Thoracic [employer] 11/14/2019 1192 / / [id number] [employer] 3186ans Octrode 60cm 8 Electrode Lead Percutaneous Kit Neurostimulator - [id number] Implanted:Qty: 1 on 02/27/2018 by Deanne Neal MD at [facility] N/A: Spine Thoracic [employer] 01/02/2020 [id number] / / [id number] [employer] 3186ans Octrode 60cm 8 Electrode Lead Percutaneous Kit Neurostimulator - [id number] Implanted:Qty: 1 on 02/27/2018 by Deanne Neal MD at [facility] N/A: Spine Thoracic [employer] 01/12/2020 [id number] / / [id number] [employer] 3662 Proclaim Elite 2.63inx1.98in 7 Ipg Implantable Recharge Free - [id number] Implanted:Qty: 1 on 02/27/2018 by Deanne Neal MD at [facility] N/A: Spine Thoracic [employer] 10/23/2019 3662 / / [id number] Exactech 320-10-00 Equinoxe Reverse Shoulder +0mm Tray Humeral Adapter - [id number] - [id number] Implanted:Qty: 1 on 11/02/2019 by Rubén Chavez MD at [facility] Left: Shoulder [employer]ech 09/08/2029 320-10-00 / [id number] / Exactech 300-30-11 Stem 70mm 11mm Humeral Equinoxe Shoulder Sterile - [id number] - [id number] Implanted:Qty: 1 on 11/02/2019 by Rubén Chavez MD at [facility] Left: Shoulder Exactech 11/17/2028 300-30-11 / [id number] / [employer] 320-15-016 Foundation Od16 Mm L150 Mm Extension Knee Stem Tibial - [id number] - [id number] Implanted:Qty: 1 on 11/02/2019 by Rubén Chavez MD at [facility] Left: Shoulder [employer] 08/04/2028 320-15-01 6 / [id number] / Exactech 320-42-03 Equinoxe 42mm Reverse Shoulder +2.5mm Liner Humeral - [id number] - [id number] Implanted:Qty: 1 on 11/02/2019 by Rubén Chavez MD at [facility] Left: Shoulder [employer]ech 06/02/2024 320-42-03 / [id number] / Ex[employer]ech 320-20-00 Reverse Torque Define Shoulder Kit Screw - [id number] - [id number] Implanted:Qty: 1 on 11/02/2019 by Rubén Chavez MD at [facility] Left: Shoulder [employer]ech 08/29/2024 320-20-00 / [id number] / [employer] 320-15-05 Equinoxe Lock Reverse Shoulder Glenosphere Screw Bone - [id number] - [id number] Implanted:Qty: 1 on 11/02/2019 by Rubén Chavez MD at [facility] Left: Shoulder [employer]ech 08/01/2024 320-15-05 / [id number] / [employer]ech 320-20-30 Equinoxe 4.5mm 30mm Kit Compression Lock Cap Reverse Shoulder - [id number] - [id number] Implanted:Qty: 1 on 11/02/2019 by Rubén Chavez MD at [facility] Left: Shoulder [employer]ech 06/06/2024 320-2030 / [id number] / Exactech 320 Equinoxe 42mm Glenosphere Shoulder Component Glenoid - [id number] - [id number] Implanted:Qty: 1 on 11/02/2019 by Rubén Chavez MD at [facility] Left: Shoulder Ex[employer]ech 05/25/2029 320 / [id number] / Insurance MEDICARE [facility] [place] [id number] MEDICARE [place] [id number] Advance Directives For more information, please contact: [phone] * Full Code (Latest Code Status on File) Date Activated Date Inactivated Comments 11/02/2019 4:08 PM 11/03/2019 7:08 PM * Full Code Date Activated Date Inactivated Comments 02/27/2018 11:32 AM 02/27/2018 1:37 PM Care Teams Brake Holder Relationship Specialty Start Date End Date Pietro Kelly MD [address] [id number] PCP - General 06/23/17
--- OUTSIDE RECORDS SUMMARY | 2024-10-04 09:28 | XMS_ITS | Referral Summary ---
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 from Last 3 Months Allergies Active Allergy Reactions Criticality Noted Date [...] as needed for pain 43 tablet 11/03/19 Active Additional Information Patient not taking.Reported on 08/12/2022 senna-docusate (PERICOLACE) 8.6-50 mgIndications: constipation Take 1-2 tablets by mouth 2 (two) times a day as needed for constipation 60 tablet 1 11/03/19 20 Active Additional Information Patient not taking.Reported on 08/12/2022 cholecalcifero l (VITAMIN D-3) 2000 unit capsule Take 1 capsule (2,000 Units total) by mouth daily 30 capsule 11/03/19 Active Additional Information Patient not taking.Reported [...] day for 14 days 28 tablet 11/04/19 20 Active Additional Information Patient not taking.Reported on 08/12/2022 lovastatin (MEVACOR) 20 mg tablet Take 1 tablet (20 mg total) by mouth daily with dinner 06/14/[address] (CYMBALTA) 60 mg capsule [...] (01/07/2018): Added automatically from request for surgery [id number] Resolved Problems Problem Noted Date Diagnosed Date Resolved Date Rotator cuff arthropathy, left 10/27/2019 01/20/2020 Overview (10/27/2019): Added automatically from request for surgery [id number] Osteoarthritis of glenohumeral joint, left 10/27/2019 01/20/2020 Overview (10/27/2019): Added automatically from request for surgery [id number] Biceps tendonitis on left 10/27/2019 Overview (10/27/2019): Added automatically from request for surgery [id number] Social History Tobacco Use Types Packs/Day Years Used Date Smoking Tobacco: Former Cigarettes Q uit: 2007 Smokeless Tobacco: Current Tobacco Cessation:Ready to Q [...] on file Legal Sex Female 1:08 AM PEARL FISHERMAN Gender Identity Female 02/07/2024 10:49 AM CDT Sexual Orientation Not on file Last Filed Vital Signs Vital Sign Reading [...] 02/11/2024 11:36 AM CDT Plan of Treatment Not on file Medical Devices Implanted Type Area Customer Supply Coordinator Device Identifier Shelf Expiration Date Model / Serial / Lot Exactech 320-20-26 Equinoxe 4.5mm 26mm Kit Compression Lock Cap Reverse Shoulder - [id number] - [id number] Implanted:Qty: 1 on 11/02/2019 by Rubén Chavez MD at [facility] Screw Left: Shoulder [employer]ech 02/24/2024 320-20-26 / [id number] / Ex[employer]ech 320-20-26 Equinoxe 4.5mm 26mm Kit Compression Lock Cap Reverse Shoulder - [id number] - [id number] Implanted:Qty: 1 on 11/02/2019 by Rubén Chavez MD at [facility] Screw Left: Shoulder [employer]ech 12/01/2023 320-20-26 / [id number] / [employer] 1192 Rob-Lock [place] Lead - [id number] Implanted:Qty: 1 on 02/27/2018 by Deanne Neal MD at [facility] N/A: Spine Thoracic [employer] 12/03/2019 1192 / / [id number] [employer] 1192 Rob-Lock [place] Lead - [id number] Implanted:Qty: 1 on 02/27/2018 by Deanne Neal MD at [facility] N/A: Spine Thoracic [employer] 11/14/2019 1192 / / [id number] [employer] 3186ans Octrode 60cm 8 Electrode Lead Percutaneous Kit Neurostimulator - [id number] Implanted:Qty: 1 on 02/27/2018 by Denane Neal MD at [facility] N/A: Spine Thoracic [employer] 01/02/2020 [id number] / / [id number] [employer] 3186ans Octrode 60cm 8 Electrode Lead Percutaneous Kit Neurostimulator - [id number] Implanted:Qty: 1 on 02/27/2018 by Deanne Neal MD at [facility] N/A: Spine Thoracic [employer] 01/12/2020 [id number] / / [id number] [employer] 3662 Proclaim Elite 2.63inx1.98in 7 Ipg Implantable Recharge Free - [id number] Implanted:Qty: 1 on 02/27/2018 by Deanne Neal MD at [facility] N/A: Spine Thoracic [employer] 10/23/2019 3662 / / [id number] Exactech 320-10-00 Equinoxe Reverse Shoulder +0mm Tray Humeral Adapter - [id number] - [id number] Implanted:Qty: 1 on 11/02/2019 by Rubén Chavez MD at [facility] Left: Shoulder Exactech 09/08/2029 320-10-00 / [id number] / Exactech 300-30-11 Stem 70mm 11mm Humeral Equinoxe Shoulder Sterile - [id number] - [id number] Implanted:Qty: 1 on 11/02/2019 by Rubén Chavez MD at [facility] Left: Shoulder Exactech 11/17/2028 300-30-11 / [id number] / [employer] 320-15-016 Foundation Od16 Mm L150 Mm Extension Knee Stem Tibial - [id number] - [id number] Implanted:Qty: 1 on 11/02/2019 by Rubén Chavez MD at [facility] Left: Shoulder [employer] 08/04/2028 320-15-01 6 / [id number] / Ex[employer]ech 320-42-03 Equinoxe 42mm Reverse Shoulder +2.5mm Liner Humeral - [id number] - [id number] Implanted:Qty: 1 on 11/02/2019 by Rubén Chavez MD at [facility] Left: Shoulder Exactech 06/02/2024 320-42-03 / [id number] / Ex[employer]ech 320-20-00 Reverse Torque Define Shoulder Kit Screw - [id number] - [id number] Implanted:Qty: 1 on 11/02/2019 by Rubén Chavez MD at [facility] Left: Shoulder Exactech 08/29/2024 320-20-00 / [id number] / Ex[employer]ech 320-15-05 Equinoxe Lock Reverse Shoulder Glenosphere Screw Bone - [id number] - [id number] Implanted:Qty: 1 on 11/02/2019 by Rubén Chavez MD at [facility] Left: Shoulder Exactech 08/01/2024 320-15-05 / [id number] / Exactech 320-20-30 Equinoxe 4.5mm 30mm Kit Compression Lock Cap Reverse Shoulder - [id number] - [id number] Implanted:Qty: 1 on 11/02/2019 by Rubén Chavez MD at [facility] Left: Shoulder Exactech 06/06/2024 320-20-30 / [id number] / Exactech 320 Equinoxe 42mm Glenosphere Shoulder Component Glenoid - [id number] - [id number] Implanted:Qty: 1 on 11/02/2019 by Rubén Chavez MD at [facility] Left: Shoulder Exactech 05/25/2029 32042 / [id number] / Insurance MEDICARE [facility] MEDICARE [facility] MEDICARE [employer] [facility] Advance Directives For more information, please contact: [phone] * Full Code (Latest Code Status on File) Date Activated Date Inactivated Comments 11/02/2019 4:08 PM 11/03/2019 7:08 PM * Full Code Date Activated Date Inactivated Comments 02/27/2018 11:32 AM 02/27/2018 1:37 PM Care Teams Physical Therapy Manager Relationship Specialty Start Date End Date Pietro Kelly MD [address] [place] [address] PCP - General 06/23/17
--- OUTSIDE RECORDS SUMMARY | 2024-10-04 09:28 | XMS_ITS | Clinical Summary ---
Author Organization [facility] Address [address] [place] [address] Phone Care Team Providers Care Iv Technician Name Role Phone Pietro Kelly MD Primary Care Provider [phone] Allergies Active Allergy Reactions Criticality Noted Date Comments Pregabalin Swelling 09/21/2024 Swelling to body Medications tiZANidine (ZANAFLEX) 4 MG Tablet Take 4 mg by mouth 3 times daily as needed. Active zolpidem (AMBIEN) 10 MG Tablet Take 10 mg by mouth nightly. Active traZODone (DESYREL) 150 MG Tablet Take 150 mg by mouth nightly. Active DULoxetine (CYMBALTA) [address] Particles Take 60 mg by mouth nightly. Active Melatonin 5 MG Tablet Take by mouth nightly. Active omeprazole (PriLOSEC) 20 MG CAPSULE DELAYED RELEASE Take 20 mg by mouth 2 times daily. Active Multiple Vitamin (MULTIVITAMIN PO) Take by mouth daily. Active Cod Liver Oil Capsule Take 1 Capsule by mouth daily. Active Sodium Hyaluronate, oral, (Hyaluronic Acid) 100 MG Capsule Take 200 mg by mouth daily. Active MAGNESIUM CITRATE PO Take 55 mg by mouth daily. Takes 2 Active BIOTIN FORTE PO Take by mouth daily. Active Berberine Chloride (BERBERINE HCI PO) Take 200 mg by mouth daily. Active Niacinamide 500 MG Capsule Take by mouth daily. Active lisinopril (PRINIVIL, ZESTRIL) 20 MG Tablet Take 20 mg by mouth daily. 09/22/19 25 Discontinu ed(Med List Clean Up) gabapentin (NEURONTIN) 300 MG Capsule Take 300 mg by mouth 3 times daily. Take 1 in the morning,1 at noon, 3 at night 09/22/19 Discontinu ed(Med List Clean Up) lovastatin (MEVACOR) 20 MG Tablet Take 20 mg by mouth every evening. With dinner 09/22/19 Discontinu ed(Med List Clean Up) Active Problems Problem Noted Date Diagnosed Date Chronic pain syndrome 09/19/2017 Somatic symptom disorder, pe rsistent, severe, with predominant pain 09/19/2017 Encounters Date Type Department Care Team Description 09/21/2024 Travel from Last 3 Months Family History Medical History Relation Name Comments Coronary Artery Disease Father Diabetes Father Heart Disease Father Renal Failure Father Heart Disease Mother Renal Failure Mother Thyroid Disease Mother Relation Name Status Comments Father Mother Social History Tobacco Use Types Packs/Day Years Used Date Smoking Tobacco: Former Cigarettes 2 - 1969 Smokeless Tobacco: Never Tobacco Cessation:Counseling Given: Not Answered Alcohol Use Standard Drinks/Week Comments Not Currently 0 (1 standard drink = 0.6 oz pur e alcohol) Comments Unknown Sex and Gender Information Value Date Recorded Sex Assigned at Not on file Legal Sex Female 9:39 AM CDT Gender Identity Not on file Sexual Orientation Not on file Last Filed Vital Signs Vital Sign Reading Time Taken Comments Blood Pressure - - Pulse - - Temperature - - Respiratory Rate - - Oxygen Saturation - - Inhaled Oxygen Concentration - - Weight 81.2 kg (179 lb) 09/21/2024 2:21 PM CDT Height 154.9 cm (5' 1) 09/21/2024 2:21 PM CDT Body Mass Index 33.82 09/21/2024 2:21 PM CDT Plan of Treatment Upcoming Encounters Date Type Department Care Team (Late st Contact Info) Description 10/08/2024 Hospital Encounter [facility] [address] [place] [id number] Deanne Neal MD [address] [place] [address] Scheduled Procedures Name Priority Associated Diagnoses Date/Ti me INSERTION/REMOVAL SPINAL STIMULATOR WITH AND WITHOUT LEADS SPINAL CORD STIMULATOR DYSFUNCTION Health Maintenance Due Date Last Done Comments DEXA Bone Density 1955 Hepatitis C Virus (HCV) Screening 1955 Mammogram 1955 Cologuard 10/25/2000 Colonoscopy 10/25/2000 Colorectal Cancer Screening 10/25/2000 Immunochemical Fecal Occult Blood 10/25/2000 Zoster Immunization (2 of 3) 03/29/2016 02/02/2016 Pneumococcal Immunization (50+ years) (2 of 2 - PPSV23) 02/01/2017 02/02/2016, 12/06/2014 SARS-COV-2 Immunization (4 - season) 2023 07/11/2021, 08/04/2020, 07/05/2020 Influenza Immunization (Season Ended) 2024 12/26/2016, 02/02/2016, 03/15/2014, Additional history exists Respiratory Syncytial Virus (RSV) Immunization (Adult) (1 - 1-dose 75+ series) 10/25/2030 DTaP/Tdap/Td Immunization Discontinued 01/28/2013 TdaP Immunization Completed 01/28/2013 Pneumococcal Immunization Combined Discontinued 02/02/2016, 12/06/2014 Hepatitis B Immunization Aged Out No longer eligible based on patient's age to complete this topic Human Papillomavirus (HPV) Immunization Aged Out No longer eligible based on patient's age to complete this topic Meningococcal Immunization (ACWY) Aged Out No longer eligible based on patient's age to complete this topic Rotavirus Immunization Aged Out No lo nger eligible based on patient's age to complete this topic Insurance MEDICARE [facility] [place] [id number] Care Teams Iv Technician Relationship Specialty Start Date End Date Pietro Kelly MD [address] [place] [address] PCP - General Internal Medicine 09/04/17
--- NOTE | 2024-10-04 09:35 | PC.NURSE ---
Tolerated Reclast infusion well. seem MAR/patient care notes.
[2024-10-04 09:52] VITALS: BP 130/72; PULSE 78; RESP 14
== END 2024-10-04 08:52 | disposition home or self-care (01) ==
PROVIDERS: PCP Internal Medicine; Visit Provider Internal Medicine
DX: M81.0 Age-related osteoporosis without current pathological fracture (principal)
CPT/HCPCS: 96374; J3489

== ENCOUNTER 2025-02-02 09:52 | Outpatient (CLI) | payer MEDICARE, SELFPAY ==
--- NOTE | 2025-02-02 10:12 | ECG_ITS ---
Test Date: 2025-02-02 10:19:37 Measurements Intervals [place] Rate: 67 P: 53 RI: 156 QRS: 31 QRSD: 80 T: 40 QT: 401 QTc: 424 Interpretive Statements SINUS RHYTHM LOW QRS VOLTAGE IN PRECORDIAL LEADS BORDERLINE T WAVE ABNORMALITY- ANTERIOR LEADS BORDERLINE ECG No previous ECG available for comparison Electronically Signed On 02-02-2025 10:41:42 CDT by Francisco Deal D.O.
[2025-02-02 10:14] LABS: Add Urine Microscopic? NO; Appearance Urine Clear (Clear); Glucose Urine UA Negative (Negative); Hematocrit 37.6 % (35.0-42.0); Hemoglobin 12.4 g/dL (11.7-13.8); Immature Granulocyte Percent A 0.4 % (0.0-0.0); Leukocyte Esterase Ur Negative LEU/UL (Negative); Lymphocytes Absolute Auto 1.05 K/mm3 (1.10-4.50); Mean Corpuscular HGB Conc 33.0 g/dL (32-36); Mean Corpuscular Hemoglobin 31.6 pg (27.0-31.0); Mean Corpuscular Volume 95.9 fL (78.0-102.0); Nitrate Urine Negative (Negative); Nucleated Red Blood Cells Absolute Auto 0.00 K/mm3 (0.00-0.00); Nucleated Red Blood Cells Perc 0.0 % (0-0.0); Platelet Count Result 182 K/mm3 (150-420); Red Blood Count 3.92 M/mm3 (4.20-5.40); Specific Grav Ur >= 1.030 (1.010-1.020); White Blood Count 5.2 K/mm3 (4.8-10.8)
[2025-02-02 10:40] LABS: Alanine Aminotransferase 14 U/L (6-35); Albumin Level 4.5 g/dL (3.5-5.1); Alkaline Phosphatase 41 U/L (38-126); Anion Gap 7 mmol/L (4-12); Aspartate Amino Transferase 23 U/L (14-36); Bilirubin,Total 0.6 mg/dL (0.2-1.3); Blood Urea Nitrogen 16 mg/dL (7-17); CRP 0.6 mg/dL (<1.0); Calcium 9.9 mg/dL (8.4-10.2); Carbon Dioxide 29 mmol/L (22-30); Chloride 104 mmol/L (98-107); Estimated Glomerular Filt Rate 58; Glucose 97 mg/dL (65-110); Osmolality Calculated 291 mOsm/kg (285-295); Potassium 4.6 mmol/L (3.4-5.0); Sodium 140 mmol/L (137-145); Total Protein 7.9 g/dL (6.3-8.2)
== END 2025-02-02 09:53 | disposition home or self-care (01) ==
PROVIDERS: PCP Internal Medicine; Visit Provider Nurse Practitioner Family
DX: Z01.818 Encounter for other preprocedural examination (principal); R94.31 Abnormal electrocardiogram [ECG] [EKG]
CPT/HCPCS: 36415; 80053; 81003; 85025; 85652; 86140; 93005

== ENCOUNTER 2025-03-16 10:00 | Outpatient (RCR) | payer MEDICARE, SELFPAY ==
--- NOTE | 2024-12-16 12:00 | WPDSLSEVAL ---
[facility] HPI Referral Source PCP Visit Attended By patient and staff History Obtained From patient Patient Stated Chief Complaint no highs or lows History of Present Illness This is a 69-year-old white female with a long history of depression and anxiety, previous admits to [facility] 10/26/2020 and 05/17/2022. Saw Dr. Kelly a few days ago who referred her back to [facility]. As per previous history, patient's mother in 2022, and 4 months after that her son passed as well. Since then she has been diagnosed with PTSD and gets ketamine infusions from a provider in [facility]. She says this has helped, especially with ruminating, and not having flashes of him dying. Symptoms have not completely resolved, and she also has multiple symptoms of anxious mood, no motivation or interest in things, low energy, middle insomnia, although better, appetite okay, gained 40 lbs but has since lost 20, difficulty concentrating, does feel hopeful, but has occasional passive thoughts of . Denies psychosis or prabhu. Dosage of ketamine is unknown, but patient is on trazodone 200 mg q.h.s., zolpidem 10 mg q.h.s., duloxetine 60 mg q.day. Past History Psychosocial Hx: of son and mother in 2022. Denies childhood history of abuse. Has 2 siblings. 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 . Two children, 1 in 2022, daughter does not live in the area, but is supportive. Substance Use Hx: Patient smoked for decades, but quit in 2013. Denies use of alcohol. She is on medical marijuana for pain and does not abuse is. Has a history of treatment about 13 years ago for cocaine. Continues to vape nicotine daily. Past Medical Hx: CKD stage 2, osteoarthritis, chronic pain, dyslipidemia, hypertension, ANIVAL, does not use CPAP, dry eye syndrome, colon adenoma. Medications include omeprazole, tizanidine, duloxetine, semaglutide, zolpidem, trazodone, suzetrigine, tramadol, Xanax ( this is not on our list of medications). Past Surgical Hx: Knee replacement, shoulder replacement, lumbar laminectomy, lumbar fusion, sleeve gastrectomy, carpal tunnel release, thoracic nerve ablation. Past Psych Hx: As per HPI. Patient has also had outpatient treatment and the [facility] in the 80s. Denies family psychiatric history. Review of Systems Review of Systems Constitutional Reports generalized weakness ( CKD 2, hypertension,) and recent weight loss Eyes Reports other ( dry eye syndrome) ENT Reports WNL Respiratory Reports other ( ANIVAL, does not use CPAP) Cardiovascular Reports other ( hypertension) Gastrointestinal Reports WNL Musculoskeletal Reports abnormal gait, Reports assistive device, Reports diminished strength, Reports muscle stiffness and Reports other ( chronic pain) Neurologic Reports WNL Skin Reports WNL ADL's Reports independent Exam Physical Exam Review of Lab Studies n/a Significant Lab Findings n/a Hygiene adequate General Behavior/Attitude Toward Examiner pleasant and cooperative Pain Yes Pain Location lower back Pain Characteristics chronic and aching Psychiatric Exam Level of Consciousness alert Orientation person, place, time and situation Speech normal rate/tone/volume/prosody and coherent Language able to follow instructions or commands Mood depressed, anxious Affect blunted, appropriate and congruent Thought Processes/Form logical, linear and goal directed Thought Content depressive and anxiety symptoms Delusions none Homicidal/Assaultive Ideation none Suicidal Ideation none Hallucinations none Attention/Concentration focused Attention/Concentration Testing Methods observation/interview Short Term Memory Impairment none STM Testing Methods clinical interview (assessment/observation) 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 Memory Impairment none LTM Testing Methods recall of biographical information Intellectual Functioning roughly average Intellectual Functioning Assessed By fund of knowledge and current events Insight fair Insight Assessed By ability to recognize & acknowledge mental illness, ability to understand the implications of mental illness, understanding of treatment options and ability to comply with treatment Judgement fair Judgement Assessed By exploring recent decision-making MMSE SLUMS 29 Patient Assets able to perform ADLs, willing to accept treatment Patient Liabilities prolonged grief, chronic pain Assessment and Plan Assessment and Plan Diagnosis F 33.2-MDD, recurrent episode, severe, with anxious distress, F 43.1 Plan begin IOP. Supportive/ cognitive therapy. Continue meds. I am not managing ketamine. Work on grief, coping skills, anxiety reduction Admission Overview Reason for Admission to Intensive Outpatient Program risk to self/others, Impaired mood, depression, mood swings, patient would decompensate at a lower level of care, patient failed to benefit from lower level of care, not at baseline level of functioning, expectation of improvement w/continued treatment at this level of care and high risk for relapse Treatment To Be Provided medication management and group/individual/rec therapy Coordination of Care Education Provided diagnosis, psychoeducation and phychopharmacological education Coordination of Care Family Involvement yes Initial Discharge Disposition/Level of correction and PCP Medical Necessity GENERAL CRITERIA Pt demonstrates a willingness to participate in program at this level., There is a clear and reasonable expectation that pt will benefit and Pt has a current DSM Diagnosis that is appropriate for admission INCLUSION CRITERIA Pts symptoms are severe enough that: Current level of OP treatment is not effectively reducing symptoms. Level of Functioning Severe Impairment in Multiple Areas of Daily Life Psychiatric Symptoms Severe to Disabling Risk and Dangerousness Mild Instability Commitment to Treatment and Program Limited Ability to Form a Long-Term Contract Social Support Able to Form and Maintain Relationships Outside of Treatment Certification Statement Certification Statement I believe this patient requires the services of the Intensive Outpatient Program and that there is reasonable expectation that the patient will make timely and significant practical improvement in the presenting acute symptoms as a result of this Intensive Outpatient Program. I do not believe this patient will benefit from a lesser level of care or could be adequately and appropriately treated in a less restrictive environment. My decision is based on the preceding clinical information. Initial Treatment Plan - IOP Initial Treatment Plan Reason for Admit patient is experiencing symptoms of depression, anxiety, and PTSD sufficient in amount, duration, and severity as to impair functioning Reasons for Level of Care intense anxiety refractory to outpatient treatment, impaired social, familial, occupational functioning, acute disturbance of affect, behavior or thinking, need for structured therapeutic milieu and failure of less intensive treatment options LOC Explaination patient is on psychotropic medications still symptomatic-require psychotherapy Date Identified 12/16/24 Objective The patient will attend all behavioral health and medical appointments as scheduled within the first two weeks of admission to the program. Target Date 12/30/24 Plan of Intervention/Modality medication management, cognitive behavioral therapy Services to be provided by physician individual therapy and medication management Certification Statement I certify that this patient requires outpatient services. Services will be furnished under the supervision and care of a physician, and under an individualized written plan of treatment.
--- NOTE | 2024-12-16 12:07 | P.PN_ITS ---
Progress HPI Progress HPI Visit Attended By patient and staff History Obtained From patient Patient Stated Chief Complaint I am sleeping HPI this is a medication check/routine visit. Since we increased her prazosin to 2 mg q.h.s. at our last visit, she says she is sleeping much better and reports no other symptoms of PTSD. Also has a history of ANIVAL, does not use CPAP, and has not had sleep study for quite some time. BP has been normal but she experience an episode of tachycardia while traveling recently to a grief retreat in [place]. And says this happen before but only when she is tr aveling. I suggested that she talk to her PCP, although this sounds like anxiety. Continues trazodone 200 mg q.h.s., zolpidem 10 mg q.h.s., duloxetine 60 mg a day, Xanax 0.25 mg q.day p.r.n., medical marijuana, the latter of which she is not using much of it all. He is also going to talk to her outpatient psychiatrist about possible Spravato treatment. Average Number of Hours of Sleep 7 Sleep Quality sleep throughout the night Change in PMFSH Releveant to Presenting Illness Yes Describe Changes in PMFSH improvement in insomnia as above Review of Systems Review of Systems Constitutional Reports other ( CKD 2) Eyes Reports other ( dry eye) ENT Reports WNL Respiratory Reports other ( history of ANIVAL) Cardiovascular Reports WNL Gastrointestinal Reports WNL Musculoskeletal Reports diminished strength, Reports muscle stiffness and Reports other ( chronic pain) Neurologic Reports WNL Skin Reports WNL ADL's Reports WNL and Reports independent Exam Physical Exam Review of Lab Studies n/a Hygiene good General Behavior/Attitude Toward Examiner pleasant and cooperative Pain Yes Pain Location generalized Pain Characteristics chronic Psychiatric Exam Level of Consciousness alert Orientation person, place, time and situation Speech normal rate/tone/volume/prosody and coherent Language able to follow instructions or commands Mood anxious Affect full range, appropriate and congruent Thought Processes/Form logical, linear and goal directed Thought Content depressive and anxiety symptoms Delusions none Homicidal/Assaultive Ideation none Suicidal Ideation none Hallucinations none Attention/Concentration focused Attention/Concentration Testing Methods observation/interview Short Term Memory Impairment none STM Testing Methods clinical interview (assessment/observation) 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 Communicator Memory Impairment none LTM Testing Methods recall of biographical information Intellectual Functioning roughly average Intellectual Functioning Assessed By abstract reasoning and fund of knowledge Insight fair and improving Insight Assessed By ability to recognize & acknowledge mental illness, ability to understand the implications of mental illness, understanding of treatment options and ability to comply with treatment Judgement fair and improving Judgement Assessed By exploring recent decision-making MMSE n/a Patient Assets able to perform ADLs, willing to accept treatment Patient Liabilities prolonged grief, chronic pain Assessment and Plan Clinical Impression/Diag Clinical Impression/Diagnosis F 33.2, F 43.1, improved insomnia. Continue to work on grief, anxiety Progress Overview Reason for Continued Services in an Intensive Outpatient Program continued impaired mood and.or depression, patient would decompenste at a lower level of care, not at baseline level of functioning and high risk for relapse Treatment To Be Provided medication management and group/individual/rec therapy Discharge Disposition/Level of Care outpatient psychiatry and PCP Anticipated Discharge 4-6 weeks
[2024-12-22 10:14] VITALS: BP 114/86; PULSE 88; RESP 20; TEMP 36.9; O2SAT 96
[2024-12-29 10:18] VITALS: BP 114/76; PULSE 86; RESP 20; TEMP 36.9; O2SAT 96
--- NOTE | 2024-12-30 11:52 | WPDSLSPROGRE ---
Progress HPI Progress HPI Visit Attended By patient and staff History Obtained From patient Patient Stated Chief Complaint I don't know, you wanted to see me HPI This is a routine visit. Patient is being seen for depression, anxiety, and PTSD. This is a 2 week admission follow-up. Patient attends group twice a week, and they been working on grief, among other topics. Patient is on trazodone 200 mg q.h.s., zolpidem 10 mg q.h.s., duloxetine 60 mg q.day, Xanax 0.25 mg q.day p.r.n., medical marijuana for pain, and ketamine infusions. Patient will be switching her ketamine provider to Dr. Garza. PTSD symptoms have improved considerably since on ketamine. Also vapes nicotine. The past few days have been difficult for patient as she has gone through and anniversary, and a birthday. Average Number of Hours of Sleep 8 Sleep Quality sleep throughout the night Change in PMFSH Releveant to Presenting Illness No Review of Systems Review of Systems Constitutional Reports generalized weakness and other ( CKD 2) Eyes Reports other ( dry eye syndrome) ENT Reports WNL Respiratory Reports other ( ANIVAL, does not use CPAP) Cardiovascular Reports other ( hypertension) Gastrointestinal Reports WNL Musculoskeletal Reports diminished strength, Reports muscle stiffness and Reports other ( chronic pain) Neurologic Reports WNL Skin Reports WNL ADL's Reports independent Exam Physical Exam Review of Lab Studies n/a Hygiene good General Behavior/Attitude Toward Examiner pleasant and cooperative Pain Yes Pain Location lower back Pain Characteristics chronic Psychiatric Exam Level of Consciousness alert Orientation person, place, time and situation Speech normal rate/tone/volume/prosody and coherent Language able to comprehend questions Mood depressed Affect full range, appropriate and congruent Thought Processes/Form logical, linear and goal directed Thought Content depressive, anxiety, PTSD symptoms Delusions none Homicidal/Assaultive Ideation none Suicidal Ideation none Hallucinations none Attention/Concentration focused Attention/Concentration Testing Methods observation/interview Short Term Memory Impairment none STM Testing Methods clinical interview (assessment/observation) 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 Memory Impairment none LTM Testing Methods recall of biographical information Intellectual Functioning roughly average Intellectual Functioning Assessed By fund of knowledge and current events Insight fair Insight Assessed By ability to recognize & acknowledge mental illness, ability to understand the implications of mental illness, understanding of treatment options and ability to comply with treatment Judgement fair Judgement Assessed By exploring recent decision-making MMSE n/a Patient Assets able to perform ADLs, willing to accept treatment Patient Liabilities prolonged grief, chronic pain Assessment and Plan Clinical Impression/Diag Clinical Impression/Diagnosis F 33.2, F 43.1, progressing well. Continue IOP. Monitor meds. PCP is prescribing meds Progress Overview Reason for Continued Services in an Intensive Outpatient Program continued impaired mood and.or depression, patient would decompenste at a lower level of care, not at baseline level of functioning and high risk for relapse Treatment To Be Provided medication management and group/individual/rec therapy Discharge Disposition/Level of Care outpatient therapy and PCP Anticipated Discharge 4-6 weeks
[2025-01-03 10:27] VITALS: BP 107/82; PULSE 80; RESP 18; TEMP 37.1; O2SAT 96
[2025-01-05 10:07] VITALS: BP 117/84; PULSE 76; RESP 18; TEMP 37; O2SAT 98
[2025-01-10 10:14] VITALS: BP 104/75; PULSE 80; RESP 20; TEMP 37.1; O2SAT 97
[2025-01-12 10:05] VITALS: BP 110/84; PULSE 84; RESP 20; TEMP 36.8; O2SAT 96
[2025-01-17 10:03] VITALS: BP 116/83; PULSE 80; RESP 20; TEMP 37.2; O2SAT 98
[2025-01-19 10:09] VITALS: BP 108/82; PULSE 83; RESP 20; TEMP 36.9; O2SAT 96
--- NOTE | 2025-01-20 12:29 | WPDSLSPROGRE ---
Progress HPI Progress HPI Visit Attended By patient and staff History Obtained From patient Patient Stated Chief Complaint routine visit. HPI patient is being seen for depression, anxiety, and PTSD symptoms. She has had a bad week and that she recently lost 20,000 dollars in a bank scam. She is working with her [employer] to try to get this resolved but is understandably been very stressed. She also says that she continues to not be able to sleep in spite of all the medication she is on. Patient says that she gets to sleep generally okay but wakes up in middle of the night. Patient is on trazodone 200 mg q.h.s., zolpidem 10 mg q.h.s., duloxetine 60 mg q.day, Xanax 0.25 mg q.day p.r.n., medical marijuana for pain, and ketamine infusions. She also vapes nicotine. The ketamine infusions have helped her PTSD but she still reports intrusive thoughts, avoidant behavior, poor sleep. She also has a history of ANIVAL and is not on CPAP. I told her that the majority of her insomnia is likely due to persistent PTSD symptoms, but also possibly ANIVAL, and she has not had a sleep study for years. We discussed prazosin and I told her that she might want to talk to Dr. Kelly to get his opinion. Enjoys program participates well. Average Number of Hours of Sleep 6 Sleep Quality frequent awakening Change in [facility] Releveant to Presenting Illness Yes Describe Changes in [facility] Financial stressors Review of Systems Review of Systems Constitutional Reports generalized weakness and other ( CKD 2) Eyes Reports other ( dry eye syndrome) ENT Reports WNL Respiratory Reports other ( ANIVAL, does not use CPAP) Cardiovascular Reports other ( hypertension) Gastrointestinal Reports WNL Musculoskeletal Reports diminished strength, Reports muscle stiffness and Reports other ( chronic pain) Neurologic Reports WNL Skin Reports WNL ADL's Reports WNL and Reports independent Exam Physical Exam Review of Lab Studies n/a Significant Lab Findings n/a Hygiene good General Behavior/Attitude Toward Examiner pleasant and cooperative Pain Yes Pain Location lower back Pain Characteristics chronic and aching Psychiatric Exam Level of Consciousness alert Orientation person, place, time and situation Speech normal rate/tone/volume/prosody and coherent Language able to comprehend questions Mood anxious Affect full range, appropriate and congruent Thought Processes/Form logical, linear and goal directed Thought Content depressive, anxiety, PTSD symptoms Delusions none Homicidal/Assaultive Ideation none Suicidal Ideation none Hallucinations none Attention/Concentration focused Attention/Concentration Testing Methods observation/interview Short Term Memory Impairment none Fci Memory Impairment none LTM Testing Methods recall of biographical information Intellectual Functioning roughly average Intellectual Functioning Assessed By fund of knowledge Insight fair Insight Assessed By ability to recognize & acknowledge mental illness, ability to understand the implications of mental illness, understanding of treatment options and ability to comply with treatment Judgement fair Judgement Assessed By exploring recent decision-making MMSE n/a Patient Assets able to perform ADLs, willing to accept treatment Patient Liabilities prolonged grief, chronic pain Assessment and Plan Clinical Impression/Diag Clinical Impression/Diagnosis F 33.2, F 43.1. Recommend trial of prazosin, patient will talk to her PCP Progress Overview Reason for Continued Services in an Outpatient Program continued impaired mood and.or depression, patient would decompenste at a lower level of care, not at baseline level of functioning and high risk for relapse Treatment To Be Provided medication management and group/individual/rec therapy Discharge Disposition/Level of Care PCP Anticipated Discharge 4-6 weeks
--- NOTE | 2025-01-21 13:43 | PC.NURSE ---
This nurse called JARROD Bai and ordered the patient Prazosin 1mg PO every evening X 30 days.
[2025-01-24 10:02] VITALS: BP 101/65; PULSE 84; RESP 20; TEMP 36.5; O2SAT 95
[2025-01-26 10:32] VITALS: BP 109/74; PULSE 82; RESP 18; TEMP 36.8; O2SAT 97
[2025-02-01 10:07] VITALS: BP 117/79; PULSE 82; RESP 18; TEMP 36.9; O2SAT 98
[2025-02-02 13:51] VITALS: BP 116/82; PULSE 76; RESP 20; TEMP 36.6; O2SAT 97
--- NOTE | 2025-02-02 14:28 | PC.NURSE ---
No nursing group due to nurse meeting.
--- NOTE | 2025-02-07 10:05 | PC.NURSE ---
No nursing group due to nurse meeting.
[2025-02-07 10:23] VITALS: BP 106/74; PULSE 76; RESP 20; TEMP 36.6; O2SAT 96
[2025-02-09 10:17] VITALS: BP 102/76; PULSE 88; RESP 20; TEMP 36.8; O2SAT 98
--- NOTE | 2025-02-10 12:08 | P.PN_ITS ---
Progress HPI Progress HPI Visit Attended By patient and staff History Obtained From patient Patient Stated Chief Complaint I am not sleeping HPI this is a medication follow-up. Patient is being seen for depression, anxiety, and PTSD symptoms. Since the last time I saw her, we started her on prazosin 1 mg q.h.s. for PTSD symptoms and sleep. She slept very well for about a week but now is having trouble again. Of note is that she also has a history of ANIVAL, does not use CPAP, and has not has sleep study for quite some time. BP has been normal. Mood is still somewhat low, although she did manage to get her money back from the [employer]. Continues trazodone 200 mg q.h.s., zolpidem 10 mg q.h.s., duloxetine 60 mg q.day, Xanax 0.25 mg q.day p.r.n., medical marijuana for pain. She is not using as much marijuana as it is not doing much to help her mood. She is no longer getting ketamine infusions because the clinic closed but she is going to talk to Dr. Garza about possible Spravato treatment. Average Number of Hours of Sleep 6 Sleep Quality frequent awakening Change in PMFSH Releveant to Presenting Illness Yes Describe Changes in PMFSH Increased insomnia as above Review of Systems Review of Systems Constitutional Reports generalized weakness and other ( CKD 2) Eyes Reports other ( dry eye cinder) ENT Reports WNL Respiratory Reports other ( history of ANIVAL) Cardiovascular Reports WNL Gastrointestinal Reports WNL Musculoskeletal Reports diminished strength, Reports muscle stiffness and Reports other ( chronic pain) Neurologic Reports WNL Skin Reports WNL ADL's Reports WNL and Reports independent Exam Physical Exam0 Review of Lab Studies n/a Hygiene good General Behavior/Attitude Toward Examiner pleasant and cooperative Pain Yes Pain Location generalized Pain Characteristics chronic Psychiatric Exam Level of Consciousness alert Orientation person, place, time and situation Speech normal rate/tone/volume/prosody and coherent Language able to follow instructions or commands Mood depressed Affect full range, appropriate and congruent Thought Processes/Form logical, linear and goal directed Thought Content depressive symptoms Delusions none Homicidal/Assaultive Ideation none Suicidal Ideation none Hallucinations none Attention/Concentration focused Attention/Concentration Testing Methods observation/interview Short Term Memory Impairment none STM Testing Methods clinical interview (assessment/observation) 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 Memory Impairment none LTM Testing Methods recall of biographical information Intellectual Functioning roughly average Intellectual Functioning Assessed By [facility] [employer] and current events Insight fair Insight Assessed By ability to recognize & acknowledge mental illness, ability to understand the implications of mental illness, understanding of treatment options and ability to comply with treatment Judgement fair Judgement Assessed By exploring recent decision-making MMSE n/a Patient Assets able to perform ADLs, willing to accept treatment Patient Liabilities prolonged grief, chronic pain Assessment and Plan Clinical Impression/Diag Clinical Impression/Diagnosis F 33.2, F 43.1, persistent PTSD symptoms. Increase prazosin to 2 mg q.h.s.. Continue to work on coping skills, anxiety reduction techniques, among other issues Progress Overview Reason for Continued Services in an Outpatient Program continued impaired mood and.or depression, patient would decompenste at a lower level of care, not at b aseline level of functioning and high risk for relapse Treatment To Be Provided medication management and group/individual/rec therapy Discharge Disposition/Level of Care PCP
--- NOTE | 2025-02-10 13:59 | PC.NURSE ---
This nurse called and spoke with Delores at [facility] to order Prazosin 2mg PO every evening X 30 days.
[2025-02-14 09:59] VITALS: BP 118/78; PULSE 85; RESP 20; TEMP 37.2; O2SAT 99
[2025-02-16 10:17] VITALS: BP 117/78; PULSE 78; RESP 20; TEMP 36.3; O2SAT 97
[2025-02-21 10:06] VITALS: BP 110/83; PULSE 88; RESP 20; TEMP 36.6; O2SAT 96
--- NOTE | 2025-02-21 10:39 | PC.NURSE ---
No nursing group due to nurse meeting.
[2025-02-24 10:29] VITALS: BP 112/85; PULSE 98; RESP 20; TEMP 36.8; O2SAT 97
--- NOTE | 2025-02-24 11:19 | PC.NURSE ---
No nursing group due to MD visit.
--- NOTE | 2025-03-01 12:21 | SLSTHERAPY ---
[place] canceled 02/28/2025 & 03/02/2025 group attendance due to medical appointment & out of state trip.
[2025-03-14 09:56] VITALS: BP 124/87; PULSE 83; RESP 20; TEMP 36.9; O2SAT 97
[2025-03-16 10:13] VITALS: BP 120/77; PULSE 90; RESP 18; TEMP 36.8; O2SAT 97
== END 2025-03-16 23:59 | disposition home or self-care (01) ==
LOC: CHSSENLIFE 10:00
PROVIDERS: PCP Internal Medicine; Visit Provider Psychiatry & Neurology Psychiatry
DX: F33.0 Major depressive disorder, recurrent, mild (principal)
CPT/HCPCS: 36415; 80053; 81003; 85025; 85652; 86140; 90792; 90837; 90853; 93005; 99213; 99214; G0463